=== PATIENT | male | born 1945 | race Caucasian/White ===

== ENCOUNTER 2021-03-27 15:42 | Emergency (ER) | payer OTHER, MEDICARE, SELFPAY ==
[2021-03-27 15:45] VITALS: BP 142/73; PULSE 78; RESP 18; TEMP 36.8; O2SAT 97; BMI 25.3
--- NOTE | 2021-03-27 16:32 | ED.SKABFB ---
HPI - Skin/Abscess/Foreign Bdy General Chief complaint: Skin/Abscess/Foreign Body Stated complaint: tick bite Time Seen by Provider: 03/27/21 16:18 History of Present Illness HPI narrative: Patient complains of rash on the right upper inner thigh which has been there for several weeks, mildly itchy He is concerned as he had a possible tick bite several weeks ago and wants to be sure he does not have Lyme disease He denies any bull's-eye rash, no other rashes, no fever no chills no recent illness Related Data Previous Rx's Medication Instructions Recorded meclizine 25 mg tablet 25 mg PO DAILY 90 Days #90 tab 02/08/21 simvastatin 20 mg tablet 20 mg PO DAILY 90 Days #90 tab 02/08/21 clotrimazole 1 appl TOPICAL BID PRN #30 g 03/27/21 Allergies Allergy/AdvReac Type Severity Reaction Status Date / Time No Known Allergies Allergy Verified 02/08/21 08:36 Review of Systems Review of Systems: Positive for skin rash in groin Negatives are no fever no chills no dizziness no weakness no cough no sore throat no runny nose no body aches Yes all other systems are reviewed and are negative [facility] Past Medical History Source: nursing notes reviewed Medical History (Updated 03/27/21 @ 16:35 by SHWETA Young) Vertigo Social History Social History Advance Directives: No Advance Directives Information Provided: No Physical Exam Vital Signs: Vital Signs: Last Vital Signs Temp 98.2 F 03/27/21 15:45 Pulse 78 03/27/21 15:45 Resp 18 03/27/21 15:45 BP 142/73 H 03/27/21 15:45 Pulse Ox 97 03/27/21 15:45 Body Mass Index 25.3 General appearance no acute distress The neck is supple No respiratory distress Extremities full range of motion x4 Skin exam there is of red raised nontender rash with well-demarcated border on the right inner upper thigh, no surrounding erythema, no warmth no discharge no swelling no tenderness Course Course Course Narrative: Inner thigh rash is consistent with a tinea cruris fungal rash, no signs cellulitis or abscess Patient had concern of a possible tick bite some weeks ago, this rash which has been there for many weeks does not have the appearance of a bull's-eye Lyme rash and patient has had no other symptoms of any illness so I did not start any Lyme disease medication and I did order a Lyme test and well-appearing patient was discharged Discharge Plan Discharge Clinical Impression: Tinea cruris Patient Disposition: Home, Self-Care Additional Instructions: We sent a Lyme disease test and results should be back within a few days and we will call you if they are positive The rash does does look like a fungal rash so we will treat with clotrimazole cream Follow with primary doctor for further evaluation Return any time any concerns Prescriptions: New clotrimazole 1 % cream 1 appl topical BID PRN (Reason: Rash) Qty: 30 RF: 0 No Action simvastatin 20 mg tablet 20 mg PO DAILY 90 Days Qty: 90 RF: 2 meclizine 25 mg tablet 25 mg PO DAILY 90 Days Qty: 90 RF: 2 Discharge Date/Time: 03/27/21 16:40
[2021-03-29 18:02] LABS: Lyme Abs Screen <0.90 index
== END 2021-03-27 16:40 | disposition home or self-care (01) ==
PROVIDERS: Physician Assistant Medical; Emergency Provider Emergency Medicine; PCP Physician Assistant
DX: B35.6 Tinea cruris (principal); R21 Rash and other nonspecific skin eruption; Z79.899 Other long term (current) drug therapy
CPT/HCPCS: 36415; 86617; 86618; 99283

== ENCOUNTER 2021-05-05 08:37 | Outpatient (REF) | payer MEDICARE, SELFPAY ==
[2021-05-05 09:36] LABS: Hematocrit 42.9 % (42-52); Hemoglobin 14.5 g/dl (14.0-18.0); Mean Corpuscular HGB Conc 33.8 g/dl (31.0-36.0); Mean Corpuscular Hemoglobin 31.3 pg (27.0-33.0); Mean Corpuscular Volume 92.5 fL (80-98); Mean Platelet Volume 9.5 fL (9.4-12.4); Platelet Count 241 X10*3/uL (160-400); Red Blood Count 4.64 X10*6/uL (4.60-5.80); Red Cell Distribution Width 12.9 % (11.0-16.0); White Blood Count 5.2 X10*3/uL (4.8-10.8)
[2021-05-05 09:39] LABS: Estimated Average Glucose 91 mg/dL; Hemoglobin A1C 107.7778 umol/L; Hemoglobin A1c % 4.8 %
[2021-05-05 10:21] LABS: Alanine Aminotransferase 7 U/L (0-40); Albumin Level 3.9 g/dL (3.5-5.0); Alkaline Phosphatase 59 U/L (39-117); Anion Gap 11 (12-20); Aspartate Amino Transferase 15 U/L (5-37); Bilirubin Total 0.7 mg/dL (0.0-1.0); Blood Urea Nitrogen 17 mg/dL (9-16); Carbon Dioxide 25 mmol/L (22-29); Chloride 107 mmol/L (96-108); Cholesterol 240 mg/dL; Estimated Glomerular Filt Rate > 60; Glucose Fasting 82 mg/dL (60-99); HDL Cholesterol 67 mg/dL; LDL Cholesterol Calculated 152 mg/dl; Potassium 4.3 mmol/L (3.3-5.1); Sodium 139 mmol/L (135-145); Total Protein 6.4 g/dL (6.5-8.0); Triglycerides 108 mg/dL
[2021-05-05 10:42] LABS: TSH reflex Free T4 5.21 uIU/mL (0.32-4.0)
[2021-05-05 12:00] LABS: Free T4 (Free Thyroxine) 0.89 ng/dL (0.71-1.85)
== END 2021-05-05 08:38 | disposition home or self-care (01) ==
LOC: HO.LAB 08:37
PROVIDERS: PCP Physician Assistant; Visit Provider Physician Assistant
DX: I10 Essential (primary) hypertension (principal); E78.2 Mixed hyperlipidemia
CPT/HCPCS: 36415; 80053; 80061; 83036; 84439; 84443; 85027

== ENCOUNTER 2021-10-13 09:07 | Outpatient (REF) | payer MEDICARE, SELFPAY ==
[2021-10-13 09:59] LABS: Hematocrit 42.2 % (42.0-52.0); Mean Corpuscular HGB Conc 33.2 g/dl (31.0-36.0); Mean Corpuscular Hemoglobin 30.8 pg (27.0-33.0); Mean Corpuscular Volume 92.7 fL (80.0-98.0); Mean Platelet Volume 9.7 fL (9.4-12.4); Platelet Count 270 X10*3/uL (160-400); Red Blood Count 4.55 X10*6/uL (4.60-5.80); Red Cell Distribution Width 12.4 % (11.0-16.0); White Blood Count 5.2 X10*3/uL (4.8-10.8)
[2021-10-13 10:34] LABS: Alanine Aminotransferase 16 U/L (0-40); Albumin Level 3.8 g/dL (3.5-5.0); Alkaline Phosphatase 62 U/L (39-117); Anion Gap 12 (12-20); Aspartate Amino Transferase 17 U/L (5-37); Bilirubin Total 0.7 mg/dL (0.0-1.0); Blood Urea Nitrogen 15 mg/dL (9-16); Calcium 9.5 mg/dL (8.4-10.2); Carbon Dioxide 27 mmol/L (22-29); Chloride 106 mmol/L (96-108); Cholesterol 179 mg/dL; Estimated Glomerular Filt Rate > 60; Glucose Fasting 94 mg/dL (60-99); HDL Cholesterol 66 mg/dL; LDL Cholesterol Calculated 98 mg/dl; Potassium 4.4 mmol/L (3.3-5.1); Sodium 141 mmol/L (135-145); Total Protein 6.4 g/dL (6.5-8.0); Triglycerides 77 mg/dL
[2021-10-13 10:55] LABS: TSH reflex Free T4 5.11 uIU/mL (0.32-4.0)
[2021-10-13 12:07] LABS: Free T4 (Free Thyroxine) 0.92 ng/dL (0.71-1.85)
== END 2021-10-13 09:08 | disposition home or self-care (01) ==
LOC: HO.10HDL 09:07
PROVIDERS: Visit Provider Physician Assistant
DX: E78.2 Mixed hyperlipidemia (principal)
CPT/HCPCS: 36415; 80053; 80061; 84439; 84443; 85027

== ENCOUNTER 2022-02-08 08:52 | Outpatient (REF) | payer MEDICARE, SELFPAY ==
[2022-02-08 10:06] LABS: Hematocrit 43.6 % (42.0-52.0); Hemoglobin 14.2 g/dl (14.0-18.0); Mean Corpuscular HGB Conc 32.6 g/dl (31.0-36.0); Mean Corpuscular Hemoglobin 30.6 pg (27.0-33.0); Mean Platelet Volume 9.7 fL (9.4-12.4); Platelet Count 258 X10*3/uL (160-400); Red Blood Count 4.64 X10*6/uL (4.60-5.80); Red Cell Distribution Width 13.2 % (11.0-16.0); White Blood Count 5.8 X10*3/uL (4.8-10.8)
[2022-02-08 10:21] LABS: Prostate Specific Antigen Scr 7.97 ng/mL (<0.05-4.0); TSH reflex Free T4 5.43 uIU/mL (0.32-4.0)
[2022-02-08 10:49] LABS: Alanine Aminotransferase 18 U/L (0-40); Albumin Level 3.7 g/dL (3.5-5.0); Alkaline Phosphatase 55 U/L (39-117); Anion Gap 13 (12-20); Aspartate Amino Transferase 21 U/L (5-37); Bilirubin Total 0.8 mg/dL (0.0-1.0); Blood Urea Nitrogen 15 mg/dL (9-16); Carbon Dioxide 26 mmol/L (22-29); Chloride 107 mmol/L (96-108); Cholesterol 231 mg/dL; Estimated Glomerular Filt Rate > 60; Glucose Fasting 93 mg/dL (60-99); HDL Cholesterol 58 mg/dL; LDL Cholesterol Calculated 137 mg/dl; Potassium 4.1 mmol/L (3.3-5.1); Sodium 142 mmol/L (135-145); Total Protein 6.4 g/dL (6.5-8.0); Triglycerides 184 mg/dL
[2022-02-08 11:10] LABS: Free T4 (Free Thyroxine) 1.03 ng/dL (0.71-1.85)
== END 2022-02-08 08:53 | disposition home or self-care (01) ==
LOC: HO.LAB 08:52
PROVIDERS: PCP Physician Assistant; Visit Provider Physician Assistant
DX: Z12.5 Encounter for screening for malignant neoplasm of prostate (principal); R79.89 Other specified abnormal findings of blood chemistry; R78.2 Finding of cocaine in blood; N40.0 Benign prostatic hyperplasia without lower urinary tract symptoms
CPT/HCPCS: 36415; 80053; 80061; 84153; 84439; 84443; 85027

== ENCOUNTER 2022-02-24 13:27 | Outpatient (REF) | payer SELFPAY | END 2022-02-24 13:28 | disposition home or self-care (01) | LOC: HO.HAP 13:27 | PROVIDERS: Visit Provider Physician Assistant | DX: Z46.1 Encounter for fitting and adjustment of hearing aid (principal); H90.3 Sensorineural hearing loss, bilateral | CPT/HCPCS: 99499 ==

== ENCOUNTER 2022-09-09 09:11 | Outpatient (REF) | payer MEDICARE, SELFPAY ==
[2022-09-09 09:47] LABS: Hematocrit 42.3 % (42.0-52.0); Hemoglobin 14.2 g/dl (14.0-18.0); Mean Corpuscular HGB Conc 33.6 g/dl (31.0-36.0); Mean Corpuscular Volume 92.4 fL (80.0-98.0); Mean Platelet Volume 9.2 fL (9.4-12.4); Platelet Count 223 X10*3/uL (160-400); Red Blood Count 4.58 X10*6/uL (4.60-5.80); White Blood Count 5.2 X10*3/uL (4.8-10.8)
[2022-09-09 10:23] LABS: Alanine Aminotransferase 15 U/L (0-40); Albumin Level 3.9 g/dL (3.5-5.0); Alkaline Phosphatase 61 U/L (39-117); Anion Gap 15 (12-20); Aspartate Amino Transferase 19 U/L (5-37); Bilirubin Total 0.9 mg/dL (0.0-1.0); Blood Urea Nitrogen 16 mg/dL (9-16); Carbon Dioxide 25 mmol/L (22-29); Chloride 105 mmol/L (96-108); Cholesterol 241 mg/dL; Estimated Glomerular Filt Rate > 60; Glucose Fasting 91 mg/dL (60-99); HDL Cholesterol 73 mg/dL; LDL Cholesterol Calculated 152 mg/dl; Potassium 4.5 mmol/L (3.3-5.1); Sodium 140 mmol/L (135-145); Total Protein 6.6 g/dL (6.5-8.0); Triglycerides 84 mg/dL
[2022-09-09 10:34] LABS: TSH reflex Free T4 4.24 uIU/mL (0.32-4.0)
== END 2022-09-09 09:12 | disposition home or self-care (01) ==
LOC: HO.LAB 09:11
PROVIDERS: PCP Physician Assistant; Visit Provider Physician Assistant
DX: R79.89 Other specified abnormal findings of blood chemistry (principal); E78.2 Mixed hyperlipidemia
CPT/HCPCS: 36415; 80053; 80061; 84439; 84443; 85027

== ENCOUNTER → 2022-09-21 08:20 | Outpatient (BNVA) | payer MEDICARE, SELFPAY | PROVIDERS: PCP Physician Assistant; Visit Provider Orthopaedic Surgery | DX: G56.01 Carpal tunnel syndrome, right upper limb (principal); M72.0 Palmar fascial fibromatosis [Dupuytren] | CPT/HCPCS: 99202 ==

== ENCOUNTER 2022-10-03 08:03 | Outpatient (REF) | payer MEDICARE, SELFPAY ==
--- NOTE | ~2022-10-03 | MR_ITS ---
EXAMINATION: MR BRAIN WITHOUT CONTRAST CLINICAL INFORMATION: Other subjective visual disturbances. COMPARISON: Brain MRI 06/22/2017. TECHNIQUE: Multiplanar, multisequence imaging of the brain was performed without intravenous contrast. FINDINGS: There is no acute infarction, mass, hemorrhage, or extra-axial collection. The ventricles, sulci, and basilar cisterns are normal in size and configuration. There is a punctate focus of microhemorrhage within the left anterior cingulate gyrus. Mild to moderate patchy foci of T2/FLAIR hyperintensity are seen throughout the cerebral white matter, most typical of chronic microangiopathy and similar compared with prior. The flow voids of the major intracranial arteries appear intact. The bones and extracranial soft tissues are unremarkable. There is a right lens replacement. MR/MR head/brain wo con IMPRESSION: No acute infarct, mass lesion, intracranial hemorrhage, or evidence of hydrocephalus. 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
== END 2022-10-03 08:04 | disposition home or self-care (01) ==
LOC: HO.MRI 08:03
PROVIDERS: Visit Provider Physician Assistant
DX: H53.19 Other subjective visual disturbances (principal); R26.89 Other abnormalities of gait and mobility; R42 Dizziness and giddiness
CPT/HCPCS: 70551

== ENCOUNTER 2023-08-09 14:20 | Outpatient (AMB) | payer MEDICARE, SELFPAY ==
--- NOTE | 2023-08-09 14:33 | A.OFFPC_ITS ---
Vital Signs 08/09/23 14:35 Height 5 ft 7 in Weight 154 lb 8 oz BMI 24.2 BP 130/70 Blood Pressure Location Lt brachial Position Sitting Pulse 53 Pulse Source Pulse Oximeter Pulse Oximetry (%) 98 Oxygen Delivery Method Room Air Intake Visit Reasons: Vertigo/PT referral Intake Note: Patient is here today for vertigo and requesting for PT referral Counselor Aide Required: No Storage Management Consultant: Not Required per policy Accompanied by: Self / Same As Patient Allergies No Known Allergies Allergy (Verified 08/09/23 15:07) Medication List - Last Reconciled 08/09/23 by Zaid Connell PA-C levothyroxine 50 mcg PO DAILY 90 days meclizine 25 mg PO DAILY 90 days sildenafil 100 mg PO DAILY PRN simvastatin 20 mg PO DAILY Tobacco use date assessed: 08/09/23 Fall risk assessment: No Falls in past year Last assessed Fall Risk: 08/09/23 Dental Screening Dental Screen Date: 08/09/23 Did you have a dental visit in the last 12 months?: Yes Did you have a dental problem in the last 6 months where you did not have access to dental care?: No Was dental information given to patient?: Patient has dentist HPI Vertigo/PT referral HPI Details Patient is a 78-year-old here today for follow-up visit..? Patient has a past medical history significant for hyperlipidemia, BPH, chronic vertigo, hypothyroidism Chronic vertigo:? Patient continues with the use of meclizine with good effect of his vertigo though continues to have intermittent episodes of breakthrough vertigo.? He has done vestibular therapy in the past with good effect on his dizziness.. Unfortunately continues to have dizziness and feeling off balance. He does report sometimes having visual disturbance while playing golf. He would like further investigation on his chronic dizziness. * Of note he has gotten MRI of his brain in 2017 without any intracranial pathology.? Did get a CT of his brain in 2016 that showed possibility of lucuna infarct . Otherwise he reports he feels well and is able to play golf several times a week.? She still goes to the gym several times a week as well. ? Hypothyroidism:? Has been started on low-dose levothyroxine. Unfortunately has not been able to recheck TSH in several months. .. Hyperlipidemia:? Continues on statin therapy without side effect.? In the setting of hypothyroidism having elevated TSH--> recent total cholesterol 240 and LDL at 152.? Will continue to follow fasting lipid panel. [facility] Medical History High cholesterol Vertigo Surgical History No history of previous surgery Social History [facility] Alcohol intake: current Alcohol intake frequency: holidays/special occasions only Patient Tobacco Use Status: Never used Tobacco e-Cigarette/Vaping Use: Never Used Second Hand Smoke Exposure: No service: Yes ([employer]) Current occupational status: retired Current occupation: rt hand Cognitive needs: No Hearing needs: Yes (hearing aide) Vision needs: Yes (glasses) Questionnaire PHQ-9 Over the last 2 weeks, how often have you been bothered by any of the following problems? 1. Little interest or pleasure in doing things: not at all 2. Feeling down, depressed, or hopeless: not at all 3. Trouble falling or staying asleep, or sleeping too much: not at all 4. Feeling tired or having little energy: not at all 5. Poor appetite or overeating: not at all 6. Feeling bad about yourself - or that you are a failure or have let yourself or your family down: not at all 7. Trouble concentrating on things, such as reading the newspaper or watching television: not at all 8. Moving or speaking so slowly that other people could have noticed. Or the opposite - being so fidgety or restless that you have been moving around a lot more than usual: not at all 9. Thoughts that you would be better off or of hurting yourself in some way: not at all Total score: 0 Depression Screening Interpretation: Negative Source: Developed by Drs. Juan Jarquin, Marlene Richard, Hang Ugaled and colleagues, with an educational cheryl from [employer]. Thrive Questionnaire Date Thrive assessed: 08/09/23 I am a: Patient What is your living situation today?: I have a steady place to live Within the past 12 months, did the food you bought not last and you didn't have the money to get more?: Never true Within the past 12 months, did you worry whether your food would run out before you got money to buy more?: Never true Do you have trouble paying for medicines?: No Do you have trouble getting transportation to medical appointments?: No Do you have trouble paying your heating and electricity bill?: No Do you have trouble taking care of your child, family member or friend?: No Do you have trouble with day-to-day activities such as bathing, preparing meals, shopping, managing finances, etc.?: No Are you currently unemployed and looking for a job?: No Are you interested in more education?: No Currently or been in a relationship where the following occur: no concerns reported AUDIT C Alcohol Use Questionnaire (AUDIT-C) 1. How often do you have a drink containing alcohol?: Monthly or less 2. How many drinks containing alcohol do you have on a typical day when you are drinking?: 1 or 2 Total Score: 1 NETTA-7 AMB Questionnaire NETTA-7 Date NETTA - 7 assessed: 08/09/23 Feeling nervous, anxious, or on edge: 0 = Not at all Not being able to stop or control worryin = Not at all Worrying too much about different things: 0 = Not at all Trouble relaxin = Not at all Being so restless that it is hard to sit still: 0 = Not at all Becoming easily annoyed or irritable: 0 = Not at all Feeling afraid as if something awful might happen: 0 = Not at all Total NETTA-7 score (0-4 normal; 5-9 mild; 10-14 moderate; 15-21 severe): 0 Source: Developed by Drs. Juan Jarquin, Marlene Richard, Hang Ugalde and colleagues, with an educational cheryl from [employer]. Review of Systems Const Denies headache(s) Eyes Denies loss of vision ENT Denies vertigo, Denies dizziness, Denies headache(s) and Denies sore throat Card Denies chest pain, Denies leg edema and Denies lightheadedness Resp Denies cough, Denies hemoptysis and Denies wheezing GI Denies abdominal pain, Denies melena, Denies constipation, Denies diarrhea and Denies vomiting Denies dysuria, Denies urinary frequency and Denies urinary urgency Musc Denies arthralgias, Denies joint swelling, Denies numbness and Denies tingling Neuro Denies Abnormal speech present, Denies behavioral changes, Denies vertigo, Denies dizziness, Denies headache(s), Denies loss of vision, Denies memory loss, Denies numbness and Denies tingling Psych Denies anxiety, Denies behavioral changes, Denies depression, Denies memory loss and Denies panic attacks Shantanu/Lymph Denies easy bleeding and Denies easy bruising Aller/Immun Denies wheezing Physical exam (Primary Care) Vital Signs: Last Vital Signs Pulse 53 08/09/23 14:35 BP 130/70 08/09/23 14:35 Pulse Ox 98 08/09/23 14:35 Oxygen Delivery Method Room Air 08/09/23 14:35 BMI result Body Mass Index 24.2 Tobacco/Smoking Status: Tobacco use Status Tobacco use date assessed 08/09/23 08/09/23 14:40 Patient Tobacco Use Status Never used Tobacco 08/09/23 14:40 e-Cigarette/Vaping Use Never Used 08/09/23 14:40 PHQ-9: PHQ-9 Score PHQ-9: Total score 0 08/09/23 15:11 Depression Screening Interpretation: Negative Thrive Assessment: Date of Thrive Assessment Date Thrive assessed 08/09/23 08/09/23 14:40 Currently or been in a relationship where the following occur: no concerns reported Const General: healthy appearing, no acute distress, alert and awake Nutritional Appearance: well nourished Orientation/consciousness: oriented to person, oriented to place and oriented to time HENMT Ears: TM's normal bilaterally General nose exam: Normal nasal mucous membranes and turbinates present Eyes Conjunctivae: conjunctivae normal Sclerae: sclerae normal Pupils: Equal, round and reactive pupils present Neck Neck: Yes no lymphadenopathy and Yes no JVD Thyroid: Thyroid normal Carotids: no bruits Resp Effort & Inspection: normal respiratory effort and not tachypneic Auscultation: no crackles, no rales, no rhonchi and no wheezes Cardio Rate: regular rate Rhythm: regular rhythm Heart sounds: no murmurs and normal S1 and S2 GI Palpation (GI): Soft to palpation, nontender, no hepatomegaly and no splenomegaly Auscultation: normal bowel sounds Skin General skin exam: no rashes or lesions noted and dry skin Neuro General: oriented to person, oriented to place and oriented to time Cranial nerves: Yes Equal, round and reactive pupils present Speech: No Abnormal speech present Gait exam (Neuro): Normal gait present Motor exam (neuro): no tremor noted Extrem Right upper extremity: full ROM Left upper extremity: full ROM Right lower extremity: full ROM; no edema Left lower extremity: full ROM; no edema Psych Mental Status: mental status grossly normal Speech and movement: Normal speech and movement present Affect: normal affect Attitude: cooperative Thought process: Normal thought process present Assessment and Plan Assessment & Plan (1) BPPV (benign paroxysmal positional vertigo): Code(s): H81.10 - Benign paroxysmal vertigo, unspecified ear Qualifiers: Laterality: bilateral Qualified Code(s): H81.13 - Benign paroxysmal vertigo, bilateral Plan: Patient continues to have intermittent dizziness, does use meclizine on a daily basis. He is concerned about now having visual disturbance and being off balance at times. 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 Has gotten repeat MRI of brain in September of 2020 to showing-->No acute infarct, mass lesion, intracranial hemorrhage, or evidence of hydrocephalus. 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 Will call when he would like order for physical therapy/vestibular therapy for his benign positional paroxysmal vertigo which has helped him tremendously in the past. (2) HLD (hyperlipidemia): Code(s): E78.5 - Hyperlipidemia, unspecified Qualifiers: Hyperlipidemia type: mixed hyperlipidemia Qualified Code(s): E78.2 - Mixed hyperlipidemia Plan: Patient continues on statin therapy without side effect. Patient's most recent total cholesterol and LDL were elevated though in the setting of elevated TSH. Will recheck TSH and fasting cholesterol panel to assure normal before making adjustments in statin potency. (3) BPH (benign prostatic hyperplasia): Code(s): N40.0 - Benign prostatic hyperplasia without lower urinary tract symptoms Qualifiers: Lower urinary tract symptom presence: symptoms absent Qualified Code(s): N40.0 - Benign prostatic hyperplasia without lower urinary tract symptoms Plan: Patient continues to follow urologist. Has a history of elevated PSAs. Denies any urinary symptoms such as urinary retention or weak urinary stream. Orders: Orders TSH reflex Free T4 08/09/23 E03.9 - Hypothyroidism, unspecified Lipid Panel 08/09/23 E78.2 - Mixed hyperlipidemia Comprehensive [place]. Panel Fast 08/09/23 E78.2 - Mixed hyperlipidemia Prostate Specific Antigen Scr 08/09/23 E78.2 - Mixed hyperlipidemia, Z12.5 - Encounter for screening for malignant neoplasm of prostate Coding Level of Care Code Est Pt Level 4 (98488) Diagnoses Benign paroxysmal positional vertigo due to bilateral vestibular disorder H81.13 Laterality: bilateral Mixed hyperlipidemia E78.2 Hyperlipidemia type: mixed hyperlipidemia Benign prostatic hyperplasia without lower urinary tract symptoms N40.0 Lower urinary tract symptom presence: symptoms absent
[2023-08-09 14:35] VITALS: BP 130/70; PULSE 53; O2SAT 98; BMI 24.2
== END 2023-08-09 15:26 | disposition home or self-care (01) ==
PROVIDERS: PCP Physician Assistant; Visit Provider Physician Assistant
DX: H81.13 Benign paroxysmal vertigo, bilateral (principal); E78.2 Mixed hyperlipidemia; N40.0 Benign prostatic hyperplasia without lower urinary tract symptoms
CPT/HCPCS: 99214

== ENCOUNTER 2023-08-21 09:45 | Outpatient (REF) | payer MEDICARE, SELFPAY ==
[2023-08-21 11:29] LABS: Alanine Aminotransferase 15 U/L (0-40); Alkaline Phosphatase 66 U/L (39-117); Anion Gap 13 (12-20); Aspartate Amino Transferase 19 U/L (5-37); Bilirubin Total 0.8 mg/dL (0.0-1.0); Blood Urea Nitrogen 14 mg/dL (9-16); Calcium 10.4 mg/dL (8.4-10.2); Carbon Dioxide 26 mmol/L (22-29); Chloride 107 mmol/L (96-108); Cholesterol 221 mg/dL (<200); Estimated Glomerular Filt Rate > 60; Glucose Fasting 95 mg/dL (60-99); HDL Cholesterol 82 mg/dL (>40); LDL Cholesterol Calculated 124 mg/dL (<100); Potassium 4.5 mmol/L (3.3-5.1); Sodium 141 mmol/L (135-145); Total Protein 7.1 g/dL (6.5-8.0); Triglycerides 76 mg/dL (<150)
[2023-08-21 11:39] LABS: Prostate Specific Antigen Scr 9.74 ng/mL (<0.05-4.0)
[2023-08-21 11:49] LABS: TSH reflex Free T4 3.35 uIU/mL (0.32-4.0)
== END 2023-08-21 09:46 | disposition home or self-care (01) ==
LOC: HO.10HDL 09:45
PROVIDERS: Visit Provider Physician Assistant
DX: Z12.5 Encounter for screening for malignant neoplasm of prostate (principal); E03.9 Hypothyroidism, unspecified; E78.2 Mixed hyperlipidemia
CPT/HCPCS: 36415; 80053; 80061; 84153; 84443

== ENCOUNTER 2023-09-18 09:30 | Outpatient (RCR) | payer MEDICARE, SELFPAY ==
[2023-09-14 14:55] VITALS: BP 149/67; PULSE 73
--- NOTE | 2023-09-14 16:02 | MHC.PT.EP ---
[facility] [place] Office [place] Office [place] Office [address] Sylwia Richards [address] [phone] F: [phone] F: [phone] F: [phone] F: [phone] Physical Therapy Plan of Care Date of Evaluation: 09/14/23 Date of Surgery: NA Diagnosis: BPPV Assessment: Pop is a 78 year old male who is referred to PT for BPPV . He reports of having symptoms of off balance for about a month. He had PT for vestibular rehab in [facility] a month back and was d/c a week or 2 back. His symptoms however returned a few days back. He describes them as feel unsteady and is present with walking and golfing. He denies any nausea of vomiting. On PT examination he presented with intact saccades, visual tracking, negative DVA, negative VBI and was positive for L PC BPPV. Balance was not checked today. He lives with his partner and is independent with all ADLs. He would benefit from skilled PT to address the aforementioned impairments and improve tolerance to functional activities. Frequency and Duration: The patient will be seen 2/week for 4 weeks. Short Term Goals: Services Tech Goals: Patient to be educated on symptoms and indications to return to therapy when needed min 4 weeks. Pt will be negative for nystagmus or reports of vertigo in all diagnostic positions bilaterally to resolution of BPPV in 4 weeks. Patient to be able to functionally move in all planes and directions without provocation of dizziness to show return to PLOF in 4 weeks. Treatment Plan: Modalities to reduce pain, spasms and effusion. Manual therapy to restore motion and function. Therapeutic exercise to improve strength and flexibility. Neuromuscular re-education for posture and balance. Therapeutic activities to return to functional activities of daily living. Electronically signed by: Yary Berger PT DPT Please sign and return to therapist. Thank you for your referral.
--- NOTE | 2023-11-14 09:19 | MHC.PT.DC ---
[facility] [place] Office [place] Office [place] Office [address] Sylwia Richards [address] [phone] F: [phone] F: [phone] F: [phone] F: [phone] Physical Therapy Discharge Report Diagnosis: BPPV Date of Surgery: NA Date of Evaluation: 09/14/23 Date of Discharge: 11/14/23 Treatments to Date: 2 Cancellations to Date: 0 No Shows to Date: 0 Discharge Status: Achieved Goals Discharge Summary: Pop has had no symptoms of vestibular dysfunction in over a month. He is therefore being d/c from PT. Electronically signed by: Yary Berger PT DPT Please sign and return to therapist. Thank you for your referral.
== END 2023-11-14 09:19 | disposition home or self-care (01) ==
LOC: HO.PT 09:30
PROVIDERS: PCP Physician Assistant; Visit Provider Physician Assistant
DX: H81.13 Benign paroxysmal vertigo, bilateral (principal)
CPT/HCPCS: 95992; 97112; 97161

== ENCOUNTER 2024-02-07 08:46 | Outpatient (AMB) | payer MEDICARE, SELFPAY ==
[2024-02-07 09:11] VITALS: BP 146/68; PULSE 95; O2SAT 99; BMI 24.6
--- NOTE | 2024-02-07 09:11 | A.OFFPC_ITS ---
Vital Signs 02/07/24 09:11 02/07/24 09:29 Height 5 ft 7 in Weight 157 lb 2 oz BMI 24.6 BP 146/68 H 140/62 H Blood Pressure Location Lt brachial Position Sitting Pulse 95 Pulse Source Pulse Oximeter Pulse Oximetry (%) 99 Oxygen Delivery Method Room Air Intake Visit Reasons: f/u HLD/ vertigo Child And Adolescent Therapist Required: No Accompanied by: Self / Same As Patient Allergies No Known Allergies Allergy (Verified 02/07/24 09:18) Medication List - Last Reconciled 02/07/24 by Zaid Connell PA-C levothyroxine 50 mcg PO DAILY 90 days meclizine 25 mg PO DAILY 90 days sildenafil 100 mg PO DAILY PRN simvastatin 20 mg PO DAILY Tobacco use date assessed: 02/07/24 Fall risk assessment: No Falls in past year Last assessed Fall Risk: 02/07/24 Dental Screening Dental Screen Date: 02/07/24 Did you have a dental visit in the last 12 months?: Yes Did you have a dental problem in the last 6 months where you did not have access to dental care?: No Was dental information given to patient?: Patient has dentist HPI f/u HLD/ vertigo HPI Details Patient is a 78-year-old here today for follow-up visit..? Patient has a past medical history significant for hyperlipidemia, BPH, chronic vertigo, hypothyroidism Chronic vertigo:? Patient continues with the use of meclizine with good effect of his vertigo though continues to have intermittent episodes of breakthrough vertigo.? He has done vestibular therapy in the past with good effect on his dizziness.. Unfortunately continues to have dizziness and feeling off balance. He does report sometimes having visual disturbance while playing golf. He would like further investigation on his chronic dizziness. * Of note he has gotten MRI of his brain in 2021 without any intracranial pathology.? Did get a CT of his brain in 2016 that showed possibility of lucuna infarct . Otherwise he reports he feels well and is able to play golf several times a week.? She still goes to the gym several times a week as well. ? Hypothyroidism:? Has been started on low-dose levothyroxine. Unfortunately has not been able to recheck TSH in several months. .. Hyperlipidemia:? Continues on statin therapy without side effect.? In the setting of hypothyroidism having elevated TSH--> Will continue to follow fasting lipid panel. Laboratory Tests 02/08/22 09/09/22 09/09/22 09:03 09:37 09:37 Cholesterol 241 PSA Screen 7.97 H TSH 4.24 H 08/21/23 08/21/23 08/21/23 08:50 08:50 08:50 Cholesterol 221 H PSA Screen 9.74 H TSH 3.35 PFSH Medical History High cholesterol Vertigo Surgical History No history of previous surgery Social History Housing: Condominium Alcohol intake: current Alcohol intake frequency: holidays/special occasions only Patient Tobacco Use Status: Never used Tobacco e-Cigarette/Vaping Use: Never Used Second Hand Smoke Exposure: No service: Yes ([employer]) Current occupational status: retired Current occupation: rt hand Cognitive needs: No Hearing needs: Yes (hearing aide) Vision needs: Yes (glasses) Questionnaire PHQ-9 Over the last 2 weeks, how often have you been bothered by any of the following problems? 1. Little interest or pleasure in doing things: not at all 2. Feeling down, depressed, or hopeless: not at all 3. Trouble falling or staying asleep, or sleeping too much: not at all 4. Feeling tired or having little energy: not at all 5. Poor appetite or overeating: not at all 6. Feeling bad about yourself - or that you are a failure or have let yourself or your family down: not at all 7. Trouble concentrating on things, such as reading the newspaper or watching television: not at all 8. Moving or speaking so slowly that other people could have noticed. Or the opposite - being so fidgety or restless that you have been moving around a lot more than usual: not at all 9. Thoughts that you would be better off or of hurting yourself in some way: not at all Total score: 0 Depression Screening Interpretation: Negative Depression Screening Done: Yes 08994 - PHQ-9 Billing: Yes Source: Developed by Drs. Juan L. Marlene Jarquin Kurt Kroenke and colleagues, with an educational cheryl from [employer]. Thrive Questionnaire Date Thrive assessed: 02/07/24 I am a: Patient What is your living situation today?: I have a steady place to live Within the past 12 months, did the food you bought not last and you didn't have the money to get more?: Never true Within the past 12 months, did you worry whether your food would run out before you got money to buy more?: Never true Do you have trouble paying for medicines?: No Do you have trouble getting transportation to medical appointments?: No Do you have trouble paying your heating and electricity bill?: No Do you have trouble taking care of your child, family member or friend?: No Do you have trouble with day-to-day activities such as bathing, preparing meals, shopping, managing finances, etc.?: No Are you currently unemployed and looking for a job?: No Are you interested in more education?: No Please select the resources that you would like help with: None Currently or been in a relationship where the following occur: no concerns reported THRIVE Score: 0 AUDIT C Alcohol Use Questionnaire (AUDIT-C) 1. How often do you have a drink containing alcohol?: 2-4 times a month 2. How many drinks containing alcohol do you have on a typical day when you are drinking?: 1 or 2 3. How often do you have six or more drinks on one occasion?: Never Total Score: 2 NETTA-7 AMB Questionnaire NETTA-7 Date NETTA - 7 assessed: 02/07/24 Feeling nervous, anxious, or on edge: 0 = Not at all Not being able to stop or control worryin = Not at all Worrying too much about different things: 0 = Not at all Trouble relaxin = Not at all Being so restless that it is hard to sit still: 0 = Not at all Becoming easily annoyed or irritable: 0 = Not at all Feeling afraid as if something awful might happen: 0 = Not at all Total NETTA-7 score (0-4 normal; 5-9 mild; 10-14 moderate; 15-21 severe): 0 Source: Developed by Marlene Morrow Kurt Kroenke and colleagues, with an educational cheryl from [employer]. NETTA-7 Assessment Billing NETTA-7 Assessment Tool: NETTA-7 Assessment 54442 Review of Systems Const Denies headache(s) Eyes Denies loss of vision ENT Denies vertigo, Denies dizziness, Denies headache(s) and Denies sore throat Card Denies chest pain, Denies leg edema and Denies lightheadedness Resp Denies cough, Denies hemoptysis and Denies wheezing GI Denies abdominal pain, Denies melena, Denies constipation, Denies diarrhea and Denies vomiting Denies dysuria, Denies urinary frequency and Denies urinary urgency Musc Denies arthralgias, Denies joint swelling, Denies numbness and Denies tingling Neuro Denies Abnormal speech present, Denies behavioral changes, Denies vertigo, Denies dizziness, Denies headache(s), Denies loss of vision, Denies memory loss, Denies numbness and Denies tingling Psych Denies anxiety, Denies behavioral changes, Denies depression, Denies memory loss and Denies panic attacks Shantanu/Lymph Denies easy bleeding and Denies easy bruising Aller/Immun Denies wheezing Physical exam (Primary Care) Vital Signs: Last Vital Signs Pulse 95 02/07/24 09:11 BP 140/62 H 02/07/24 09:29 Pulse Ox 99 02/07/24 09:11 Oxygen Delivery Method Room Air 02/07/24 09:11 BMI result Body Mass Index 24.6 Tobacco/Smoking Status: Tobacco use Status Tobacco use date assessed 02/07/24 02/07/24 09:16 Patient Tobacco Use Status Never used Tobacco 02/07/24 09:16 e-Cigarette/Vaping Use Never Used 02/07/24 09:16 PHQ-9: PHQ-9 Score PHQ-9: Total score 0 02/07/24 09:19 Depression Screening Interpretation: Negative Thrive Assessment: Date of Thrive Assessment Date Thrive assessed 02/07/24 02/07/24 09:16 Currently or been in a relationship where the following occur: no concerns reported Const General: healthy appearing, no acute distress, alert and awake Nutritional Appearance: well nourished Orientation/consciousness: oriented to person, oriented to place and oriented to time HENMT Ears: TM's normal bilaterally General nose exam: Normal nasal mucous membranes and turbinates present Eyes Conjunctivae: conjunctivae normal Sclerae: sclerae normal Pupils: Equal, round and reactive pupils present Neck Neck: Yes no lymphadenopathy and Yes no JVD Thyroid: Thyroid normal Carotids: no bruits Resp Effort & Inspection: normal respiratory effort and not tachypneic Auscultation: no crackles, no rales, no rhonchi and no wheezes Cardio Rate: regular rate Rhythm: regular rhythm Heart sounds: no murmurs and normal S1 and S2 GI Palpation (GI): Soft to palpation, nontender, no hepatomegaly and no splenomegaly Auscultation: normal bowel sounds Skin General skin exam: no rashes or lesions noted and dry skin Neuro General: oriented to person, oriented to place and oriented to time Cranial nerves: Yes Equal, round and reactive pupils present Speech: No Abnormal speech present Gait exam (Neuro): Normal gait present Motor exam (neuro): no tremor noted Extrem Right upper extremity: full ROM Left upper extremity: full ROM Right lower extremity: full ROM; no edema Left lower extremity: full ROM; no edema Psych Mental Status: mental status grossly normal Speech and movement: Normal speech and movement present Affect: normal affect Attitude: cooperative Thought process: Normal thought process present Assessment and Plan Assessment & Plan (1) BPPV (benign paroxysmal positional vertigo): Code(s): H81.10 - Benign paroxysmal vertigo, unspecified ear Qualifiers: Laterality: bilateral Qualified Code(s): H81.13 - Benign paroxysmal vertigo, bilateral Plan: Patient continues to have intermittent dizziness, does use meclizine on a daily basis. He is concerned about now having visual disturbance and being off balance at times. Has gotten repeat MRI of brain in September of 2022 showing-->No acute infarct, mass lesion, intracranial hemorrhage, or evidence of hydrocephalus. 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 Will call when he would like order for physical therapy/vestibular therapy for his benign positional paroxysmal vertigo which has helped him tremendously in the past. (2) HLD (hyperlipidemia): Code(s): E78.5 - Hyperlipidemia, unspecified Qualifiers: Hyperlipidemia type: mixed hyperlipidemia Qualified Code(s): E78.2 - Mixed hyperlipidemia Plan: Patient continues on statin therapy without side effect. Patient's most recent total cholesterol and LDL were elevated though in the setting of elevated TSH. Will recheck TSH and fasting cholesterol panel to assure normal before making adjustments in statin potency. (3) BPH (benign prostatic hyperplasia): Code(s): N40.0 - Benign prostatic hyperplasia without lower urinary tract symptoms Qualifiers: Lower urinary tract symptom presence: symptoms absent Qualified Code(s): N40.0 - Benign prostatic hyperplasia without lower urinary tract symptoms Plan: Patient continues to follow urologist. Has a history of elevated PSAs. He does report having some weak urinary stream in urinary urgency at times. He is willing to start tamsulosin. Will recheck his PSA if continues to elevate will let patient know when he will call us urologist (4) Elevated blood pressure reading: Code(s): R03.0 - Elevated blood-pressure reading, without diagnosis of hypertension Plan: Blood pressure slightly elevated today in office. He does not regularly check his blood pressure though usually it is normal. Advised to monitor blood pressure at and if consistently above 140/90 will consider low-dose blood pressure medication. Orders: Orders Comprehensive [place]. Panel Fast 02/07/24 E78.2 - Mixed hyperlipidemia TSH reflex Free T4 02/07/24 E03.9 - Hypothyroidism, unspecified Lipid Panel 02/07/24 E78.2 - Mixed hyperlipidemia Complete Blood Count no Diff 02/07/24 E78.2 - Mixed hyperlipidemia Prostate Specific Antigen Scr 02/07/24 N40.0 - Benign prostatic hyperplasia without lower urinary tract symptoms, Z12.5 - Encounter for screening for malignant neoplasm of prostate Medications: New tamsulosin 0.4 mg PO DAILY 90 caps 1RF N40.0 - Benign prostatic hyperplasia without lower urinary tract symptoms Coding Level of Care Code Est Pt Level 4 (25704) Diagnoses Benign paroxysmal positional vertigo due to bilateral vestibular disorder H81.13 Laterality: bilateral Mixed hyperlipidemia E78.2 Hyperlipidemia type: mixed hyperlipidemia Benign prostatic hyperplasia without lower urinary tract symptoms N40.0 Lower urinary tract symptom presence: symptoms absent Elevated blood pressure reading R03.0 Additional Codes NETTA-7 Assessment Billing - NETTA-7 Assessment Tool: NETTA-7 Assessment 45722 ([id number])
[2024-02-07 09:29] VITALS: BP 140/62
== END 2024-02-07 09:36 | disposition home or self-care (01) ==
PROVIDERS: PCP Physician Assistant; Visit Provider Physician Assistant
DX: H81.13 Benign paroxysmal vertigo, bilateral (principal); E78.2 Mixed hyperlipidemia; N40.0 Benign prostatic hyperplasia without lower urinary tract symptoms; R03.0 Elevated blood-pressure reading, without diagnosis of hypertension
CPT/HCPCS: 99214

== ENCOUNTER 2024-02-16 08:43 | Outpatient (REF) | payer MEDICARE, SELFPAY ==
[2024-02-16 11:43] LABS: Hematocrit 38.8 % (42.0-52.0); Hemoglobin 13.3 g/dl (14.0-18.0); Mean Corpuscular HGB Conc 34.3 g/dl (31.0-36.0); Mean Corpuscular Hemoglobin 32.2 pg (27.0-33.0); Mean Corpuscular Volume 93.9 fL (80.0-98.0); Mean Platelet Volume 9.8 fL (9.4-12.4); Platelet Count 240 X10*3/uL (160-400); Red Blood Count 4.13 X10*6/uL (4.60-5.80); Red Cell Distribution Width 12.8 % (11.0-16.0); White Blood Count 5.2 X10*3/uL (4.8-10.8)
[2024-02-16 12:14] LABS: Prostate Specific Antigen Scr 6.23 ng/mL (<0.05-4.0)
[2024-02-16 12:24] LABS: Alanine Aminotransferase 24 U/L (0-40); Albumin Level 3.5 g/dL (3.5-5.0); Alkaline Phosphatase 67 U/L (39-117); Anion Gap 13 (12-20); Aspartate Amino Transferase 27 U/L (5-37); Bilirubin Total 0.5 mg/dL (0.0-1.0); Blood Urea Nitrogen 14 mg/dL (9-16); Calcium 9.4 mg/dL (8.4-10.2); Carbon Dioxide 27 mmol/L (22-29); Chloride 107 mmol/L (96-108); Cholesterol 188 mg/dL (<200); Estimated Glomerular Filt Rate > 60; Glucose Fasting 77 mg/dL (60-99); HDL Cholesterol 87 mg/dL (>40); LDL Cholesterol Calculated 87 mg/dL (<100); Sodium 143 mmol/L (135-145); TSH reflex Free T4 2.47 uIU/mL (0.32-4.0); Total Protein 6.8 g/dL (6.5-8.0); Triglycerides 74 mg/dL (<150)
== END 2024-02-16 08:44 | disposition home or self-care (01) ==
LOC: HO.10HDL 08:43
PROVIDERS: Visit Provider Physician Assistant
DX: Z12.5 Encounter for screening for malignant neoplasm of prostate (principal); E03.9 Hypothyroidism, unspecified; E78.2 Mixed hyperlipidemia; N40.0 Benign prostatic hyperplasia without lower urinary tract symptoms
CPT/HCPCS: 36415; 80053; 80061; 84153; 84443; 85027

== ENCOUNTER 2024-08-14 10:16 | Outpatient (AMB) | payer MEDICARE, SELFPAY ==
[2024-08-14 10:26] VITALS: BP 128/54; PULSE 76; O2SAT 98; BMI 24.6
--- NOTE | 2024-08-14 10:26 | MHC.PC.OV ---
Vital Signs 08/14/24 10:26 Height 5 ft 7 in Weight 157 lb BMI 24.6 BP 128/54 L Blood Pressure Location Lt brachial Position Sitting Pulse 76 Pulse Source Pulse Oximeter Pulse Oximetry (%) 98 Oxygen Delivery Method Room Air Intake Visit Reasons: ANNUAL Intake Note: Patient is here today for a physical. [employer] Physician Required: No Accompanied by: Self / Same As Patient Allergies No Known Allergies Allergy (Verified 08/14/24 10:59) Medication List - Last Reconciled 08/14/24 by Zaid Connell PA-C levothyroxine 50 mcg PO DAILY 90 days meclizine 25 mg PO DAILY 90 days sildenafil 100 mg PO DAILY PRN simvastatin 20 mg PO DAILY tamsulosin 0.4 mg PO DAILY Tobacco use date assessed: 02/07/24 Fall risk assessment: No Falls in past year Last assessed Fall Risk: 08/14/24 Dental Screening Dental Screen Date: 02/07/24 HPI ANNUAL HPI Details Patient is a 79-year-old here today for routine annual physical.? Patient has a past medical history significant for hyperlipidemia, BPH, chronic vertigo, hypothyroidism. 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 Hypothyroidism:? Patient continues on levothyroxine 50mcg. TSH has been fairly stable .. Hyperlipidemia:? Patient's most recent lipid panel showing excellent control of his total cholesterol and LDL. Patient continues on simvastatin 20 mg without any side effect. Vaccines: Up-to-date with tetanus vaccine, shingles vaccine, considering flu, Need PCV ( declines) Colorectal cancer screening- No further colonoscopies needed PFSH Medical History High cholesterol Vertigo Surgical History No history of previous surgery Social History (Updated 08/14/24 @ 11:04 by Zaid Connell PA-C) Housing: Condominium Alcohol intake: current Alcohol intake frequency: holidays/special occasions only Alcohol type: beer Patient Tobacco Use Status: Never used Tobacco e-Cigarette/Vaping Use: Never Used Second Hand Smoke Exposure: No service: Yes ([employer]) Current occupational status: retired Current occupation: rt hand Cognitive needs: No Hearing needs: Yes (hearing aide) Vision needs: Yes (glasses) Questionnaire PHQ-9 Over the last 2 weeks, how often have you been bothered by any of the following problems? 1. Little interest or pleasure in doing things: not at all 2. Feeling down, depressed, or hopeless: not at all 3. Trouble falling or staying asleep, or sleeping too much: not at all 4. Feeling tired or having little energy: not at all 5. Poor appetite or overeating: not at all 6. Feeling bad about yourself - or that you are a failure or have let yourself or your family down: not at all 7. Trouble concentrating on things, such as reading the newspaper or watching television: not at all 8. Moving or speaking so slowly that other people could have noticed. Or the opposite - being so fidgety or restless that you have been moving around a lot more than usual: not at all 9. Thoughts that you would be better off or of hurting yourself in some way: not at all Total score: 0 Depression Screening Interpretation: Negative Depression Screening Done: Yes 31221 - PHQ-9 Billing: Yes Source: Developed by Drs. Juan Jarquin, Marlene Richard, Hang Ugalde and colleagues, with an educational cheryl from [employer]. Thrive Questionnaire Date Thrive assessed: 08/14/24 I am a: Patient What is your living situation today?: I have a steady place to live Within the past 12 months, did the food you bought not last and you didn't have the money to get more?: I choose not to answer this question Within the past 12 months, did you worry whether your food would run out before you got money to buy more?: Never true Do you have trouble paying for medicines?: No Do you have trouble getting transportation to medical appointments?: No Do you have trouble paying your heating and electricity bill?: No Do you have trouble taking care of your child, family member or friend?: No Do you have trouble with day-to-day activities such as bathing, preparing meals, shopping, managing finances, etc.?: No Are you currently unemployed and looking for a job?: No Are you interested in more education?: No Please select the resources that you would like help with: None Currently or been in a relationship where the following occur: No concerns reported THRIVE Score: 0 AUDIT C Alcohol Use Questionnaire (AUDIT-C) 1. How often do you have a drink containing alcohol?: 2-4 times a month 2. How many drinks containing alcohol do you have on a typical day when you are drinking?: 1 or 2 3. How often do you have six or more drinks on one occasion?: Never Total Score: 2 NETTA-7 AMB Questionnaire NETTA-7 Date NETTA - 7 assessed: 08/14/24 Feeling nervous, anxious, or on edge: 0 = Not at all Not being able to stop or control worryin = Not at all Worrying too much about different things: 0 = Not at all Trouble relaxin = Not at all Being so restless that it is hard to sit still: 0 = Not at all Becoming easily annoyed or irritable: 0 = Not at all Feeling afraid as if something awful might happen: 0 = Not at all Total NETTA-7 score (0-4 normal; 5-9 mild; 10-14 moderate; 15-21 severe): 0 Source: Developed by Drs. Juan Jarquin, Marelne Richard, Hang Ugalde and colleagues, with an educational cheryl from [employer]. NETTA-7 Assessment Billing NETTA-7 Assessment Tool: NETTA-7 Assessment 63498 Review of Systems Const Denies body aches, Denies chills, Denies excessive sweating, Denies fatigue, Denies fever(s) and Denies headache(s) Eyes Denies blurry vision ENT Denies dysphagia, Denies vertigo, Denies dizziness, Denies headache(s), Denies hearing loss and Denies tinnitus Card Denies chest pain, Denies chest pain with activity, Denies syncope, Denies irregular heart rhythm and Denies dyspnea Resp Denies chest congestion, Denies cough, Denies hemoptysis, Denies dyspnea and Denies wheezing GI Denies abdominal pain, Denies melena, Denies hematochezia, Denies coffee ground emesis, Denies dysphagia, Denies diarrhea, Denies nausea and Denies vomiting Denies difficulty urinating, Denies dysuria, Denies urinary frequency, Denies urinary hesitancy and Denies urinary urgency Musc Denies arthralgias, Denies limited range of motion, Denies muscle cramps and Denies muscle weakness Skin/Breast Denies rash and Denies skin ulcer Neuro Denies Abnormal speech present, Denies confusion, Denies vertigo, Denies dizziness, Denies syncope, Denies headache(s), Denies memory loss and Denies seizure-like activity Psych Denies anxiety, Denies confusion, Denies depression, Denies memory loss, Denies panic attacks and Denies paranoia Endo Denies excessive sweating, Denies fatigue, Denies flushing, Denies polydipsia and Denies polyuria Aller/Immun Denies wheezing Physical exam (Primary Care) Vital Signs: Last Vital Signs Pulse 76 08/14/24 10:26 BP 128/54 L 08/14/24 10:26 Pulse Ox 98 08/14/24 10:26 Oxygen Delivery Method Room Air 08/14/24 10:26 BMI result Body Mass Index 24.6 Tobacco/Smoking Status: Tobacco use Status Tobacco use date assessed 02/07/24 08/14/24 10:27 Patient Tobacco Use Status Never used Tobacco 08/14/24 11:04 e-Cigarette/Vaping Use Never Used 08/14/24 11:04 PHQ-9: PHQ-9 Score PHQ-9: Total score 0 08/14/24 11:01 Depression Screening Interpretation: Negative Thrive Assessment: Date of Thrive Assessment Date Thrive assessed 08/14/24 08/14/24 10:27 Currently or been in a relationship where the following occur: No concerns reported Const General: cooperative, comfortable, no acute distress, alert and awake; No confusion Orientation/consciousness: oriented to person, oriented to place, patient oriented x3 and No confusion HENMT Head: Yes normocephalic Ears: external ears normal and TM's normal bilaterally Face and sinus: No sinus tenderness Mouth: Normal oral and palatal mucosa present and tongue normal Teeth and gingiva: dentition normal and gingiva normal Throat: Yes posterior oropharynx normal, Yes tonsils normal and Yes uvula midline Eyes Conjunctivae: conjunctivae normal Sclerae: sclerae normal Pupils: Equal, round and reactive pupils present EOM: EOMs intact bilaterally Direct Ophthalmoscopy: No no photophobia Neck Neck: Yes no lymphadenopathy, No tender and Yes no JVD Thyroid: Thyroid normal Carotids: no bruits Chest Chest palpation & inspection: no tenderness Resp Effort & Inspection: normal respiratory effort, no audible wheezes, not labored and no stridor Auscultation: no crackles, no rales, no rhonchi and no wheezes Cardio Jugular venous distension: no JVD Rate: regular rate, not bradycardic and not tachycardic Rhythm: regular rhythm Bruits: no carotid bruits Peripheral pulses: Peripheral pulses 2+ throughout GI Inspection: Yes normal to inspection, No abdominal wall ecchymosis and No visible herniation Palpation (GI): Soft to palpation, nontender, no guarding, not rigid and No hepatosplenomegaly present Auscultation: normoactive bowel sounds General: Yes no CVA tenderness Back/Spine/Pelvis Back: no CVA tenderness and No back tenderness Cervical Spine: cervical ROM normal Thoracic/Lumbar Spine: thoracic and lumbar spine normal to inspection, straight leg raise negative bilaterally, No thoraco-lumbar ROM limited and No lumbar spinal tenderness Skin Lesions: no lesions Rashes: no rashes Wounds: no wounds Neuro General: oriented to person, oriented to place, patient oriented x3, CN's II-XI intact bilaterally and No confusion Cranial nerves: Yes Equal, round and reactive pupils present and Yes Normal accommodation reflex present Cognition (Neuro): normal cognition Speech: No Abnormal speech present Gait exam (Neuro): Normal gait present Motor exam (neuro): 5/5 motor strength present throughout Extrem Right upper extremity: full ROM; no cyanosis Left upper extremity: full ROM; no cyanosis Right lower extremity: no edema Left lower extremity: no edema Psych Appearance: grossly normal Mental Status: mental status grossly normal Affect: normal affect Attitude: cooperative Thought process: Normal thought process present Assessment and Plan Assessment & Plan (1) HLD (hyperlipidemia): Code(s): E78.5 - Hyperlipidemia, unspecified Qualifiers: Hyperlipidemia type: mixed hyperlipidemia Qualified Code(s): E78.2 - Mixed hyperlipidemia Plan: Patient continues on statin therapy without side effect. Most recent lipid panel showing excellent control of his total cholesterol and LDL. Will continue current dose of statin therapy simvastatin 20 mg with goal LDL to remain below 130 (2) BPH (benign prostatic hyperplasia): Code(s): N40.0 - Benign prostatic hyperplasia without lower urinary tract symptoms Qualifiers: Lower urinary tract symptom presence: symptoms absent Qualified Code(s): N40.0 - Benign prostatic hyperplasia without lower urinary tract symptoms Plan: Patient continues to follow urologist. Has a history of elevated PSAs for many years. He attributes his elevated PSAs from being physically active and riding his bike. He otherwise denies any urinary symptoms at this time. (3) Hypothyroid: Code(s): E03.9 - Hypothyroidism, unspecified Qualifiers: Hypothyroidism type: unspecified Qualified Code(s): E03.9 - Hypothyroidism, unspecified Plan: Patient continues on levothyroxine 50 mcg with good effect. Weight has been fairly stable. Most recent TSH is have been stable. Will continue follow TSH. (4) BPPV (benign paroxysmal positional vertigo): Code(s): H81.10 - Benign paroxysmal vertigo, unspecified ear Qualifiers: Laterality: bilateral Qualified Code(s): H81.13 - Benign paroxysmal vertigo, bilateral Plan: Patient's vertigo has resolved over the last 2 years since taking a [id number] balance supplement. Orders: Orders TSH reflex Free T4 08/14/24 E03.9 - Hypothyroidism, unspecified Prostate Specific Antigen Scr 08/14/24 N40.0 - Benign prostatic hyperplasia without lower urinary tract symptoms, Z12.5 - Encounter for screening for malignant neoplasm of prostate Comprehensive [place]. Panel Fast 08/14/24 E78.2 - Mixed hyperlipidemia Lipid Panel 08/14/24 E78.2 - Mixed hyperlipidemia Patient Instructions: Goal: Total cholesterol to be below 230 and LDL to be below 130 Barriers: Adherence to physical activity and healthy eating habits Coding Level of Care Code Est Pt Prev Care >65y(66515) Diagnoses Mixed hyperlipidemia E78.2 Hyperlipidemia type: mixed hyperlipidemia Benign prostatic hyperplasia without lower urinary tract symptoms N40.0 Lower urinary tract symptom presence: symptoms absent Hypothyroidism, unspecified type E03.9 Hypothyroidism type: unspecified Benign paroxysmal positional vertigo due to bilateral vestibular disorder H81.13 Laterality: bilateral Additional Codes NETTA-7 Assessment Billing - NETTA-7 Assessment Tool: NETTA-7 Assessment 50449 ([id number])
== END 2024-08-14 11:20 | disposition home or self-care (01) ==
PROVIDERS: PCP Physician Assistant; Visit Provider Physician Assistant
DX: Z00.00 Encounter for general adult medical examination without abnormal findings (principal); E78.2 Mixed hyperlipidemia; N40.0 Benign prostatic hyperplasia without lower urinary tract symptoms; E03.9 Hypothyroidism, unspecified; H81.13 Benign paroxysmal vertigo, bilateral

== ENCOUNTER → 2024-08-14 10:16 | Outpatient (BNVA) | payer MEDICARE, SELFPAY | PROVIDERS: PCP Physician Assistant; Visit Provider Physician Assistant | DX: Z00.00 Encounter for general adult medical examination without abnormal findings (principal); E78.2 Mixed hyperlipidemia; N40.0 Benign prostatic hyperplasia without lower urinary tract symptoms; E03.9 Hypothyroidism, unspecified; H81.13 Benign paroxysmal vertigo, bilateral | CPT/HCPCS: 96127 ==

== ENCOUNTER 2024-12-31 09:06 | Outpatient (REF) | payer MEDICARE, SELFPAY ==
[2024-12-31 11:18] LABS: Prostate Specific Antigen Scr 10.68 ng/mL (<0.05-4.0)
[2024-12-31 11:19] LABS: Alanine Aminotransferase 19 U/L (0-40); Albumin Level 3.9 g/dL (3.5-5.0); Alkaline Phosphatase 67 U/L (39-117); Anion Gap 16 (12-20); Aspartate Amino Transferase 22 U/L (5-37); Bilirubin Total 0.8 mg/dL (0.0-1.0); Blood Urea Nitrogen 12 mg/dL (9-16); Calcium 9.2 mg/dL (8.4-10.2); Carbon Dioxide 28 mmol/L (22-29); Chloride 106 mmol/L (96-108); Cholesterol 246 mg/dL (<200); Estimated Glomerular Filt Rate > 60; Glucose Fasting 85 mg/dL (60-99); HDL Cholesterol 71 mg/dL (>40); LDL Cholesterol Calculated 128 mg/dL (<100); Potassium 4.3 mmol/L (3.3-5.1); Sodium 146 mmol/L (135-145); TSH reflex Free T4 4.06 uIU/mL (0.32-4.0); Total Protein 7.6 g/dL (6.5-8.0); Triglycerides 235 mg/dL (<150)
[2024-12-31 13:52] LABS: Free T4 (Free Thyroxine) 1.06 ng/dL (0.71-1.85)
[2025-01-01 12:43] LABS: Percent Free Prostate Spec Ag NOT CALCULATED % (calc) (>25); Prostate Specific Ag Total 10.8 ng/mL (< OR = 4.0)
== END 2024-12-31 09:07 | disposition home or self-care (01) ==
LOC: HO.10HDL 09:06
PROVIDERS: Physician Assistant; Visit Provider Physician Assistant
DX: R97.20 Elevated prostate specific antigen [PSA] (principal); E03.9 Hypothyroidism, unspecified; Z12.5 Encounter for screening for malignant neoplasm of prostate; N40.0 Benign prostatic hyperplasia without lower urinary tract symptoms; E78.2 Mixed hyperlipidemia
CPT/HCPCS: 36415; 80053; 80061; 84153; 84154; 84439; 84443

== ENCOUNTER 2025-02-11 10:02 | Outpatient (AMB) | payer MEDICARE, SELFPAY ==
--- NOTE | 2025-02-11 10:07 | A.OFFPC_ITS ---
Vital Signs 02/11/25 10:18 Height 5 ft 7 in Weight 158 lb 4 oz BMI 24.8 BP 142/62 H Blood Pressure Location Lt brachial Position Sitting Pulse 64 Pulse Source Pulse Oximeter Temp 97.5 F Temp Source Temporal Artery Scan Pulse Oximetry (%) 98 Oxygen Delivery Method Room Air Intake Visit Reasons: f/u hypothyroid Medical Billing Specialist Required: No Accompanied by: Self / Same As Patient Allergies No Known Allergies Allergy (Verified 02/11/25 10:30) Medication List - Last Reconciled 02/11/25 by Zaid Connell PA-C levothyroxine 50 mcg PO DAILY 90 days meclizine 25 mg PO DAILY 90 days neomycin-polymyxin B-dexameth 3.5 mg/g-10,000 unit/g-0.1 % ophthalmic (eye) sildenafil 100 mg PO DAILY PRN simvastatin 40 mg PO BEDTIME 90 days tamsulosin 0.4 mg PO DAILY Tobacco use date assessed: 02/11/25 Fall risk assessment: No Falls in past year Last assessed Fall Risk: 02/11/25 Dental Screening Dental Screen Date: 02/11/25 Did you have a dental visit in the last 12 months?: Yes Did you have a dental problem in the last 6 months where you did not have access to dental care?: No Was dental information given to patient?: Patient has dentist HPI f/u hypothyroid HPI Details Patient is a 79-year-old here today for routine annual physical.? Patient has a past medical history significant for hyperlipidemia, BPH, chronic vertigo, hypothyroidism. 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 Hypothyroidism:? Patient continues on levothyroxine 50mcg. TSH has been fairly stable .. Elevated PSA: Continues to follow urology in [place], most recent PSA at 10. He reports they are not recommending biopsy at this time as he has had a chronically elevated PSA likely secondary to bph. He otherwise denies any ur inary difficulties. .. Hyperlipidemia:? Patient's most recent lipid panel showing elevated total cholesterol and LDL. He admits to not taking his statin therapy and recently restarted taking the medication. PLAN: Will recheck lipid panel in 6 months while continuing with the taking statin therapy. Laboratory Tests 08/21/23 02/16/24 12/31/24 08:50 08:45 09:12 Hgb 13.3 L Sodium 146 H Fasting Glucose 85 Triglycerides 74 235 H Cholesterol 188 246 H LDL Cholesterol, C alc 128 H PSA Screen 9.74 H 6.23 H 10.68 H PFSH Medical History High cholesterol Vertigo Surgical History No history of previous surgery Social History [facility]: [facility] Alcohol intake: current Alcohol intake frequency: holidays/special occasions only Alcohol type: beer Patient Tobacco Use Status: Never used Tobacco e-Cigarette/Vaping Use: Never Used Second Hand Smoke Exposure: No service: Yes ([employer]) Current occupational status: retired Current occupation: rt hand Cognitive needs: No Hearing needs: Yes (hearing aide) Vision needs: Yes (glasses) Questionnaire PHQ-9 Over the last 2 weeks, how often have you been bothered by any of the following problems? 1. Little interest or pleasure in doing things: not at all 2. Feeling down, depressed, or hopeless: not at all 3. Trouble falling or staying asleep, or sleeping too much: not at all 4. Feeling tired or having little energy: not at all 5. Poor appetite or overeating: not at all 6. Feeling bad about yourself - or that you are a failure or have let yourself or your family down: not at all 7. Trouble concentrating on things, such as reading the newspaper or watching television: not at all 8. Moving or speaking so slowly that other people could have noticed. Or the opposite - being so fidgety or restless that you have been moving around a lot more than usual: not at all 9. Thoughts that you would be better off or of hurting yourself in some way: not at all Total score: 0 Depression Screening Interpretation: Negative Depression Screening Done: Yes 00766 - PHQ-9 Billing: Yes Source: Developed by Drs. Juan Jarquin, Marlene Richard, Hang Ugalde and colleagues, with an educational cheryl from [employer]. Thrive Questionnaire Date Thrive assessed: 02/11/25 NETTA-7 AMB Questionnaire NETTA-7 Date NETTA - 7 assessed: 08/14/24 Feeling nervous, anxious, or on edge: 0 = Not at all Not being able to stop or control worryin = Not at all Worrying too much about different things: 0 = Not at all Trouble relaxin = Not at all Being so restless that it is hard to sit still: 0 = Not at all Becoming easily annoyed or irritable: 0 = Not at all Feeling afraid as if something awful might happen: 0 = Not at all Total NETTA-7 score (0-4 normal; 5-9 mild; 10-14 moderate; 15-21 severe): 0 Source: Developed by Drs. Juan Jarquin, Marlene Richard, Hang Ugalde and colleagues, with an educational cheryl from [employer]. NETTA-7 Assessment Billing NETTA-7 Assessment Tool: NETTA-7 Assessment 05980 Review of Systems Const Denies headache(s) Eyes Denies loss of vision ENT Denies vertigo, Denies dizziness, Denies headache(s) and Denies sore throat Card Denies chest pain, Denies leg edema and Denies lightheadedness Resp Denies cough, Denies hemoptysis and Denies wheezing GI Denies abdominal pain, Denies melena, Denies constipation, Denies diarrhea and Denies vomiting Denies dysuria, Denies urinary frequency and Denies urinary urgency Musc Denies arthralgias, Denies joint swelling, Denies numbness and Denies tingling Neuro Denies Abnormal speech present, Denies behavioral changes, Denies vertigo, Denies dizziness, Denies headache(s), Denies loss of vision, Denies memory loss, Denies numbness and Denies tingling Psych Denies anxiety, Denies behavioral changes, Denies depression, Denies memory loss and Denies panic attacks Shantanu/Lymph Denies easy bleeding and Denies easy bruising Aller/Immun Denies wheezing Physical exam (Primary Care) Vital Signs: Last Vital Signs Temp 97.5 F 02/11/25 10:18 Pulse 64 02/11/25 10:18 BP 142/62 H 02/11/25 10:18 Pulse Ox 98 02/11/25 10:18 Oxygen Delivery Method Room Air 02/11/25 10:18 BMI result Body Mass Index 24.8 Tobacco/Smoking Status: Tobacco use Status Tobacco use date assessed 02/11/25 02/11/25 10:20 Patient Tobacco Use Status Never used Tobacco 02/11/25 10:07 e-Cigarette/Vaping Use Never Used 02/11/25 10:07 PHQ-9: PHQ-9 Score PHQ-9: Total score 0 02/11/25 10:35 Depression Screening Interpretation: Negative Thrive Assessment: Date of Thrive Assessment Date Thrive assessed 02/11/25 02/11/25 10:07 Const General: healthy appearing, no acute distress, alert and awake Nutritional Appearance: well nourished Orientation/consciousness: oriented to person, oriented to place and oriented to time HENMT Ears: TM's normal bilaterally General nose exam: Normal nasal mucous membranes and turbinates present Eyes Conjunctivae: conjunctivae normal Sclerae: sclerae normal Pupils: Equal, round and reactive pupils present Neck Neck: Yes no lymphadenopathy and Yes no JVD Thyroid: Thyroid normal Carotids: no bruits Resp Effort & Inspection: normal respiratory effort and not tachypneic Auscultation: no crackles, no rales, no rhonchi and no wheezes Cardio Rate: regular rate Rhythm: regular rhythm Heart sounds: no murmurs and normal S1 and S2 GI Palpation (GI): Soft to palpation, nontender, no hepatomegaly and no splenomegaly Auscultation: normal bowel sounds Skin General skin exam: no rashes or lesions noted and dry skin Neuro General: oriented to person, oriented to place and oriented to time Cranial nerves: Yes Equal, round and reactive pupils present Speech: No Abnormal speech present Gait exam (Neuro): Normal gait present Motor exam (neuro): no tremor noted Extrem Right upper extremity: full ROM Left upper extremity: full ROM Right lower extremity: full ROM; no edema Left lower extremity: full ROM; no edema Psych Mental Status: mental status grossly normal Speech and movement: Normal speech and movement present Affect: normal affect Attitude: cooperative Thought process: Normal thought process present Coding Level of Care Code Est Pt Level 4 (05450) Diagnoses Mixed hyperlipidemia E78.2 Hyperlipidemia type: mixed hyperlipidemia Benign prostatic hyperplasia without lower urinary tract symptoms N40.0 Lower urinary tract symptom presence: symptoms absent Elevated blood pressure reading R03.0 Primary hypertension I10 Hypertension type: primary hypertension Additional Codes PHQ-9 - 13739 - PHQ-9 Billing: Yes ([id number]) NETTA-7 Assessment Billing - NETTA-7 Assessment Tool: NETTA-7 Assessment 52261 ([id number]) Assessment & Plan Assessment & Plan (1) HLD (hyperlipidemia): Code(s): E78.5 - Hyperlipidemia, unspecified Category: Medical Qualifiers: Hyperlipidemia type: mixed hyperlipidemia Qualified Code(s): E78.2 - Mixed hyperlipidemia Plan: Patient's recent lipid panel showing elevated total cholesterol and LDL. He admits he was not taking statin therapy. He has restarted taking simvastatin. Will recheck fasting lipid panel in 6 months to assure normal. Goal LDL to be below 130 (2) BPH (benign prostatic hyperplasia): Code(s): N40.0 - Benign prostatic hyperplasia without lower urinary tract symptoms Category: Medical Qualifiers: Lower urinary tract symptom presence: symptoms absent Qualified Code(s): N40.0 - Benign prostatic hyperplasia without lower urinary tract symptoms Plan: Continues to follow urology, denies any particular urinary symptoms. Most recent PSAs has been elevated though has been a chronic finding. (3) Elevated blood pressure reading: Code(s): R03.0 - Elevated blood-pressure reading, without diagnosis of hypertension Category: Medical Plan: Noted elevated blood pressure reading today and at previous office visits. Will start hydrochlorothiazide to help control blood pressure. Goal blood pressure is to be below 140/90 (4) HTN (hypertension): Code(s): I10 - Essential (primary) hypertension Category: Medical Qualifiers: Hypertension type: primary hypertension Qualified Code(s): I10 - Essential (primary) hypertension Plan: As above Orders: Orders TSH reflex Free T4 02/11/25 E03.9 - Hypothyroidism, unspecified Lipid Panel 02/11/25 E78.2 - Mixed hyperlipidemia Complete Blood Count no Diff 02/11/25 E78.2 - Mixed hyperlipidemia Comprehensive [place]. Panel Fast 02/11/25 E78.2 - Mixed hyperlipidemia Medications: New hydrochlorothiazide 12.5 mg PO DAILY 90 tabs 1RF 90 days I10 - Essential (primary) hypertension Patient Instructions: Goal: LDL to be below 130, blood pressure to be below 140/90 Barrier: Adherence to physical activity and healthy eating habits
[2025-02-11 10:18] VITALS: BP 142/62; PULSE 64; TEMP 36.4; O2SAT 98; BMI 24.8
== END 2025-02-11 10:46 | disposition home or self-care (01) ==
LOC: HO.HMCH 10:02
PROVIDERS: PCP Physician Assistant; Visit Provider Physician Assistant
DX: E78.2 Mixed hyperlipidemia (principal); N40.0 Benign prostatic hyperplasia without lower urinary tract symptoms; R03.0 Elevated blood-pressure reading, without diagnosis of hypertension; I10 Essential (primary) hypertension

== ENCOUNTER → 2025-02-11 10:02 | Outpatient (BNVA) | payer MEDICARE, SELFPAY | PROVIDERS: PCP Physician Assistant; Visit Provider Physician Assistant | DX: E78.2 Mixed hyperlipidemia (principal); N40.0 Benign prostatic hyperplasia without lower urinary tract symptoms; R03.0 Elevated blood-pressure reading, without diagnosis of hypertension; I10 Essential (primary) hypertension | CPT/HCPCS: 96127; 99212 ==

== ENCOUNTER 2025-08-14 08:38 | Outpatient (AMB) | payer MEDICARE, SELFPAY ==
[2025-08-14 08:42] VITALS: BP 124/58; PULSE 74; O2SAT 97; BMI 24.1
--- NOTE | 2025-08-14 08:42 | A.OFFPC_ITS ---
Vital Signs 08/14/25 08:42 Height 5 ft 7 in Weight 154 lb 2 oz BMI 24.1 BP 124/58 L Blood Pressure Location Lt brachial Position Sitting Pulse 74 Pulse Source Pulse Oximeter Pulse Oximetry (%) 97 Oxygen Delivery Method Room Air Intake Visit Reasons: f/u HTN / HLD Neonatal Critical Care Nurse Required: No Accompanied by: Self / Same As Patient Allergies No Known Allergies Allergy (Verified 08/14/25 08:59) Medication List - Last Reconciled 08/14/25 by SHWETA Patterson-Hien hydrochlorothiazide 12.5 mg PO DAILY 90 days levothyroxine 50 mcg PO DAILY 90 days meclizine 25 mg PO DAILY 90 days neomycin-polymyxin B-dexameth 3.5 mg/g-10,000 unit/g-0.1 % ophthalmic (eye) sildenafil 100 mg PO DAILY PRN simvastatin 40 mg PO BEDTIME 90 days tamsulosin 0.4 mg PO DAILY Tobacco use date assessed: 02/11/25 Fall risk assessment: No Falls in past year Last assessed Fall Risk: 08/14/25 Dental Screening Dental Screen Date: 08/14/25 Did you have a dental visit in the last 12 months?: Yes Did you have a dental problem in the last 6 months where you did not have access to dental care?: No Was dental information given to patient?: No HPI f/u HTN / HLD HPI Details Patient is a 80-year-old here today for a follow-up visit? Patient has a past medical history significant for hyperlipidemia, BPH, chronic vertigo, hypothyroidism. 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 Hypothyroidism:? Patient continues on levothyroxine 50mcg. TSH has been fairly stable .. Elevated PSA: Continues to follow urology in [place], most recent PSA at 10. He reports they are not recommending biopsy at this time as he has had a chronically elevated PSA likely secondary to bph. He otherwise denies any urinary difficulties. .. Hyperlipidemia:? Patient's most recent lipid panel showing elevated total cholesterol and LDL. He admits to not taking his statin therapy and recently restarted taking the medication. PLAN: Will recheck lipid panel in 6 months while continuing with the taking statin therapy. ] Laboratory Tests 12/31/24 09:12 Total PSA (off-sit e) 10.8 H TSH 4.06 H PFSH Medical History High cholesterol Vertigo Surgical History No history of previous surgery Social History [facility] Alcohol intake: current Alcohol intake frequency: holidays/special occasions only Alcohol type: beer Patient Tobacco Use Status: Never used Tobacco e-Cigarette/Vaping Use: Never Used Second Hand Smoke Exposure: No service: Yes ([employer]) Current occupational status: retired Current occupation: rt hand Cognitive needs: No Hearing needs: Yes (hearing aide) Vision needs: Yes (glasses) Questionnaire Thrive Questionnaire Date Thrive assessed: 02/11/25 NETTA-7 AMB Questionnaire NETTA-7 Date NETTA - 7 assessed: 08/14/24 Source: Developed by Drs. Juan Jarquin, Marlene Richard, Hang Ugalde and colleagues, with an educational cheryl from [employer]. Review of Systems Const Denies headache(s) Eyes Denies loss of vision ENT Denies vertigo, Denies dizziness, Denies headache(s) and Denies sore throat Card Denies chest pain, Denies leg edema and Denies lightheadedness Resp Denies cough, Denies hemoptysis and Denies wheezing GI Denies abdominal pain, Denies melena, Denies constipation, Denies diarrhea and Denies vomiting Denies dysuria, Denies urinary frequency and Denies urinary urgency Musc Denies arthralgias, Denies joint swelling, Denies numbness and Denies tingling Neuro Denies Abnormal speech present, Denies behavioral changes, Denies vertigo, Denies dizziness, Denies headache(s), Denies loss of vision, Denies memory loss, Denies numbness and Denies tingling Psych Denies anxiety, Denies behavioral changes, Denies depression, Denies memory loss and Denies panic attacks Shantanu/Lymph Denies easy bleeding and Denies easy bruising Aller/Immun Denies wheezing Physical exam (Primary Care) Vital Signs: Last Vital Signs Pulse 74 08/14/25 08:42 BP 124/58 L 08/14/25 08:42 Pulse Ox 97 08/14/25 08:42 Oxygen Delivery Method Room Air 08/14/25 08:42 BMI result Body Mass Index 24.1 Tobacco/Smoking Status: Tobacco use Status Tobacco use date assessed 02/11/25 08/14/25 08:47 Patient Tobacco Use Status Never used Tobacco 08/14/25 08:47 e-Cigarette/Vaping Use Never Used 08/14/25 08:47 Thrive Assessment: Date of Thrive Assessment Date Thrive assessed 02/11/25 08/14/25 08:47 Const General: healthy appearing, no acute distress, alert and awake Nutritional Appearance: well nourished Orientation/consciousness: oriented to person, oriented to place and oriented to time HENMT Ears: TM's normal bilaterally General nose exam: Normal nasal mucous membranes and turbinates present Eyes Conjunctivae: conjunctivae normal Sclerae: sclerae normal Pupils: Equal, round and reactive pupils present Neck Neck: Yes no lymphadenopathy and Yes no JVD Thyroid: Thyroid normal Carotids: no bruits Resp Effort & Inspection: normal respiratory effort and not tachypneic Auscultation: no crackles, no rales, no rhonchi and no wheezes Cardio Rate: regular rate Rhythm: regular rhythm Heart sounds: no murmurs and normal S1 and S2 GI Palpation (GI): Soft to palpation, nontender, no hepatomegaly and no splenomegaly Auscultation: normal bowel sounds Skin General skin exam: no rashes or lesions noted and dry skin Neuro General: oriented to person, oriented to place and oriented to time Cranial nerves: Yes Equal, round and reactive pupils present Speech: No Abnormal speech present Gait exam (Neuro): Normal gait present Motor exam (neuro): no tremor noted Extrem Right upper extremity: full ROM Left upper extremity: full ROM Right lower extremity: full ROM; no edema Left lower extremity: full ROM; no edema Psych Mental Status: mental status grossly normal Speech and movement: Normal speech and movement present Affect: normal affect Attitude: cooperative Thought process: Normal thought process present Coding Level of Care Code Est Pt Level 4 (07380) Diagnoses Mixed hyperlipidemia E78.2 Hyperlipidemia type: mixed hyperlipidemia Benign prostatic hyperplasia without lower urinary tract symptoms N40.0 Lower urinary tract symptom presence: symptoms absent Primary hypertension I10 Hypertension type: primary hypertension Assessment & Plan Assessment & Plan (1) HLD (hyperlipidemia): Code(s): E78.5 - Hyperlipidemia, unspecified Category: Medical Qualifiers: Hyperlipidemia type: mixed hyperlipidemia Qualified Code(s): E78.2 - Mixed hyperlipidemia Plan: Patient continues on simvastatin 40, advised to get fasting labs done to evaluate total cholesterol and LDL.. Goal LDL to be below 130 (2) BPH (benign prostatic hyperplasia): Code(s): N40.0 - Benign prostatic hyperplasia without lower urinary tract symptoms Category: Medical Qualifiers: Lower urinary tract symptom presence: symptoms absent Qualified Code(s): N40.0 - Benign prostatic hyperplasia without lower urinary tract symptoms Plan: Continues to follow urology, denies any particular urinary symptoms. Most recent PSAs has been elevated though has been a chronic finding. (3) HTN (hypertension): Code(s): I10 - Essential (primary) hypertension Category: Medical Qualifiers: Hypertension type: primary hypertension Qualified Code(s): I10 - Essential (primary) hypertension Plan: As above Patient's blood pressure acceptable today in office. Will continue on hydrochlorothiazide 12.5 mg. Goal blood pressure to remain below 140/90 Orders: Orders Prostate Specific Antigen Scr 08/14/25 N40.0 - Benign prostatic hyperplasia without lower urinary tract symptoms, Z12.5 - Encounter for screening for malignant neoplasm of prostate Medications: Refilled sildenafil 100 mg PO DAILY PRN 30 tabs 3RF sexual activity F52.21 - Male erectile disorder Patient Instructions: Goal: Blood pressure to be below 140/90, LDL to remain below 130 Barriers: Adherence to physical activity and healthy eating habits
--- OUTSIDE RECORDS SUMMARY | 2025-08-14 09:51 | XMS_ITS | Patient Health Record ---
Author Organization [facility] Address [address] [place] [id number] Care Team Providers Care Ice Carver Name Role Phone Nadia(inactive) Luis Alfredo QUINTANILLA Primary Care Provider U Juan Gonzalez Unavailable [phone] Reason For Referral No Information Medications Medication SIG (Take, Route, Fr equency, Duration) Notes Start Date End Date Status Aspirin 81 MG Orally Active Multivitamin Active Meclizine HCl 25 MG 1 tablet as needed O rally Once a day Active Simvastatin 20 MG 1 tablet in the even ing Orally Once a day Active Social History Tobacco Use: Social History Observation Description Date Details (start date - stop date) Never Smoker NA - NA Tobacco Use/Smoking Question Answer Notes Patient is a nonsmoker Alcohol Screen Question Answer Notes Did you have a drink contain ing alcohol in the past year? Yes How often did you have a dri nk containing alcohol in the past year? 2 to 4 times a month (2 points) How many drinks did you have on a typical day when you were drinking in the past year? 1 or 2 drinks (0 point) Points 2 Interpretation Negative Section Notes: Nonsmoker; occ. beer Problems Problem Type SNOMED Code ICD Code Onset Dates Problem Status W/U Status Risk Notes Problem 397332293 Encounter for screening for malignant neoplasm of colon (Z12.11) Active confirmed Problem 189479200 Preprocedural examination (Z01.818) Active confirmed Problem 607007515 Aspirin long-ter m use (Z79.82) Active confirmed Plan Of Treatment Pending Test Test Name Order Date GI BIOPSY 08/13/2018 Future Test Test Name Order Date COLONOSCOPY 03/06/2018 Insurance Providers Payer Name Payer Address Payer Phone Subscriber Number Group Number Insured Name Patient Relationship to Insured Coverage Start Date Coverage End Date [facility] [address] [address] [place] [address] [phone] [id number] VIRAJ GARZON Self - patient is the insured Medical (General) History Medical History History ICD Code Denies [place],DM,CVA,Lung disease,renal dise ase Hx of vertigo Hyperlipidemia Neg. 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
--- OUTSIDE RECORDS SUMMARY | 2025-08-14 09:51 | XMS_ITS | Encounter Summary ---
Author Organization [facility] Address [address] [place] [phone] Phone Care Team Providers Care Hand Candy Dipper Name Role Phone Zaid Connell Primary Care Provider + Reason for Referral * Physical Therapy (Routine) - Closed Specialty Diagnoses / Procedures Referred By Jose drake Referred To Contact Physical Therapy Diagnoses Encounter for rehabilitation Zaid Connell PA Phone: tel: fax: [facility] [address] [place] [address] Phone: tel: Referral ID Status Reason Start Date Expiration Date Visits Re quested Visits Authorized [id number] Closed 03/25/2022 03/25/2023 1 1 Encounter Details Date Type Department Care Team (Latest Contact Info) Description 03/25/2022 Transcribe Orders [facility] [address] [place] [address] Zaid Connell PA [facility] [place] [address] Encounter for rehabilitation (Primary Dx) Social History Tobacco Use Types Packs/Day Years Used Date Smoking Tobacco: Never Assessed Sex and Gender Information Value Date Recorded Sex Assigned at Not on file Legal Sex Male 10:10 PM EDT Gender Identity Not on file Sexual Orientation Not on file documented as of this encounter Plan of Treatment Scheduled Referrals Name Type Priority Associated Diagnoses Orde r Schedule Ambulatory referral to [facility] Physical Therapy Outpatient Referral Routine Encounter for rehabilitation Ordered: 03/25/2022 documented as of this encounter Visit Diagnoses Diagnosis Encounter for rehabilitation- Primary documented in this encounter Care Teams Hand Candy Dipper Relationship Specialty Start Date End Date Zaid Connell PA [address] [place] [address] PCP - General 03/18/22 documented as of this encounter Additional Source Comments The information contained in this document represents components of the legal health record. It is not the complete legal health record.[facility]
--- OUTSIDE RECORDS SUMMARY | 2025-08-14 09:51 | XMS_ITS | Clinical Summary ---
Author Organization [facility] Address [address] [facility] [address] [place] [address] Phone Care Team Providers Care Supervisor Farm Equipment Maintenance Name Role Phone Zaid Connell Primary Care Provider + Allergies No known active allergies Medications SYNTHROID 50 mcg tablet 02/12/2024 Active meclizine (ANTIVERT) 25 mg tablet 03/11/2024 Active neomycin-polymy thierno B-dexAMETHasone (MAXITROL) 3.5 mg/g-10,000 unit/g-0.1 % Oint APPLY TO BOTH EYES EVERY NIGHT AT BEDTIME 01/18/2024 Active sildenafiL (VIAGRA) 100 mg tablet 01/31/2024 Active tamsulosin (FLOMAX) 0.4 mg Cap Take 1 capsule by mouth every morning. 02/07/2024 Active Active Problems No known active problems Social History Tobacco Use Types Packs/Day Years Used Date Smoking Tobacco: Never Smokeless Tobacco: Never Tobacco Cessation:Counseling Given: Not Answered Education Answer Date Recorded Are you interested in more education? Not on dereck e 03/24/2023 Are you concerned about learning? Not on file 03/24/2023 No 03/24/2023 No 03/24/2023 Digital Access Answer Date Recorded No 04/22/2023 No 04/22/2023 Reliable internet access at home? Not on file 04/22/2023 Device with a working camera? Not on file Sex and Gender Information Value Date Recorded Sex Assigned at Not on file Legal Sex Male 10:10 PM EDT Gender Identity Not on file Sexual Orientation Not on file Last Filed Vital Signs Vital Sign Reading Time Taken Comments Blood Pressure 127/81 11/26/2024 1:36 PM EST Pulse 74 11/26/2024 1:36 PM EST Temperature 36.6 C (97.9 F) 11/26/2024 1:36 PM EST Respiratory Rate 16 11/26/2024 1:36 PM EST Oxygen Saturation 98% 11/26/2024 1:36 PM EST Inhaled Oxygen Concentration - - Weight 72.6 kg (160 lb) 04/05/2024 11:35 AM EDT per pt Height - - Body Mass Index - - Plan of Treatment Health Maintenance Due Date Last Done Comments TSH LEVEL 1943 DEPRESSION SCREENING 1955 PNEUMOCOCCAL VACCINES (50+ years) (1 of 1 - PCV) 1993 RSV VACCINE (1 - 1-dose 75+ series) 2018 ZOSTER VACCINES (3 of 3) 04/16/2018 02/19/2018, 10/27 INFLUENZA VACCINE (#1) 2025 2, 10/08/2021, 09/28/2020, Additional history exists COVID-19 VACCINE ( season) 2025 Adult Td,Tdap Booster 12/09/2029 12/09/2019 HEPATITIS A VACCINES Aged Out No long er eligible based on patient's age to complete this topic HIB VACCINES Aged Out No longer eligi ble based on patient's age to complete this topic MENINGOCOCCAL VACCINES (ACWY) Aged Out No longer eligible based on patient's age to complete this topic MENINGOCOCCAL VACCINES (B) Aged Out N o longer eligible based on patient's age to complete this topic Medical Devices Not on file Insurance [facility] MEDICARE REPLACEMENT [facility] MEDICARE REPLACEMENT [facility] MEDICARE REPLACEMENT [facility] MEDICARE REPLACEMENT [facility] MEDICARE REPLAC[place] [address] [address] [place] [address] MEDICARE REPLACEMENT [facility] MEDICARE REPLACEMENT [facility] MEDICARE REPLACEMENT [place] [id number] [facility] MEDICARE REPLACEMENT Care Teams Supervisor Farm Equipment Maintenance Relationship Specialty Start Date End Date Zaid Connell PA [address] [place] [id number] PCP - General 03/18/22 Additional Source Comments The information contained in this document represents components of the legal health record. It is not the complete legal health record.[facility]
== END 2025-08-14 09:16 | disposition home or self-care (01) ==
LOC: HO.HMCH 08:39
PROVIDERS: PCP Physician Assistant; Visit Provider Physician Assistant
DX: E78.2 Mixed hyperlipidemia (principal); N40.0 Benign prostatic hyperplasia without lower urinary tract symptoms; I10 Essential (primary) hypertension

== ENCOUNTER → 2025-08-14 08:38 | Outpatient (BNVA) | payer MEDICARE, SELFPAY | PROVIDERS: PCP Physician Assistant; Visit Provider Physician Assistant | DX: E78.2 Mixed hyperlipidemia (principal); N40.0 Benign prostatic hyperplasia without lower urinary tract symptoms; I10 Essential (primary) hypertension | CPT/HCPCS: 99212 ==

== ENCOUNTER 2025-09-04 09:11 | Outpatient (REF) | payer MEDICARE, SELFPAY | END 2025-09-04 09:12 | disposition home or self-care (01) | LOC: HO.10HDL 09:11 | PROVIDERS: Visit Provider Physician Assistant | DX: Z12.5 Encounter for screening for malignant neoplasm of prostate (principal); N40.0 Benign prostatic hyperplasia without lower urinary tract symptoms | CPT/HCPCS: 36415; 84153 ==

== ENCOUNTER 2025-10-09 10:35 | Outpatient (REF) | payer MEDICARE, SELFPAY ==
[2025-10-09 11:35] LABS: Hematocrit 42.6 % (42.0-52.0); Hemoglobin 14.3 g/dl (14.0-18.0); Mean Corpuscular HGB Conc 33.6 g/dl (31.0-36.0); Mean Corpuscular Hemoglobin 31.7 pg (27.0-33.0); Mean Corpuscular Volume 94.5 fL (80.0-98.0); NRBC Abs Auto 0.000 X10*3/uL (0.0-0.012); NRBC Pct Auto 0.0 /100WBC (0.0-0.2); Platelet Count 248 X10*3/uL (160-400); Red Blood Count 4.51 X10*6/uL (4.60-5.80); White Blood Count 5.2 X10*3/uL (4.8-10.8)
[2025-10-09 12:19] LABS: Alanine Aminotransferase 21 U/L (0-40); Albumin Level 4.1 g/dL (3.5-5.0); Alkaline Phosphatase 71 U/L (39-117); Anion Gap 12 (12-20); Aspartate Amino Transferase 24 U/L (5-37); Blood Urea Nitrogen 20 mg/dL (9-16); Calcium 9.5 mg/dL (8.4-10.2); Carbon Dioxide 29 mmol/L (22-29); Chloride 106 mmol/L (96-108); Cholesterol 192 mg/dL (<200); Estimated Glomerular Filt Rate > 60; HDL Cholesterol 83 mg/dL (>40); Potassium 4.0 mmol/L (3.3-5.1); Sodium 143 mmol/L (135-145); Total Protein 7.1 g/dL (6.5-8.0); Triglycerides 70 mg/dL (<150)
--- OUTSIDE RECORDS SUMMARY | 2025-10-09 13:02 | XMS_ITS | Encounter Summary ---
Author Organization [facility] Address [address] [place] [phone] Phone Care Team Providers Care Senior Risk Manager Name Role Phone Zaid Connell Primary Care Provider + Reason for Referral * Physical Therapy (Routine) - Closed Specialty Diagnoses / Procedures Referred By Jose drake Referred To Contact Physical Therapy Diagnoses Encounter for rehabilitation Zaid Connell PA Phone: tel: fax: [facility] [address] [place] [address] Phone: tel: Referral ID Status Reason Start Date Expiration Date Visits Re quested Visits Authorized [id number] Closed 03/25/2022 03/25/2023 1 1 Encounter Details Date Type Department Care Team (Latest Contact Info) Description 03/25/2022 Transcribe Orders [facility] [address] [place] [address] Zaid Connell PA [facility] [place] [address] Encounter for rehabilitation (Primary Dx) Social History [...] Diagnoses Orde r Schedule Ambulatory referral to [facility] Physical Therapy Outpatient Referral Routine Encounter for rehabilitation Ordered: 03/25/2022 documented as of this encounter Visit Diagnoses Diagnosis Encounter for rehabilitation- Primary documented in this encounter Care Teams Senior Risk Manager Relationship Specialty Start Date End Date Zaid Connell PA [address] [place] [address] PCP - General 03/18/22 documented as of this encounter Additional Source Comments The information contained in this document represents components of the legal health record. It is not the complete legal health record.[facility]
--- OUTSIDE RECORDS SUMMARY | 2025-10-09 13:02 | XMS_ITS | Patient Health Record ---
Author Organization [facility] Address [address] [place] [id number] Care Team Providers Care Telephone Ad Taker Name Role Phone Nadia(inactive) Luis Alfredo QUINTANILLA Primary Care Provider U Juan Gonzalez Unavailable [phone] Reason For Referral No Information Medications Medication [...] Problem Status W/U Status Risk Notes Problem Screening for malignant neoplasm of colon (128129656) Encounter for screening for malignant neoplasm of colon (Z12.11) Active confirmed Problem Preprocedural examination (872618399351427) Preprocedural examination (Z01.818) Active confirmed Problem Long-term current use of aspirin (258312413013828) Aspirin long-term use (Z79.82) Active confirmed Plan Of Treatment Pending Test Test Name Order Date GI BIOPSY 08/13/2018 Future Test Test Name Order Date COLONOSCOPY 03/06/2018 Insurance Providers Payer Name Payer Address Payer Phone Subscriber Number Group Number Insured Name Patient Relationship to Insured Coverage Start Date Coverage End Date [facility] [address] [address] [place] [address] [id number] VIRAJ GARZON Self - patient is the insured Medical (General) History Medical History History ICD Code Denies [place],DM,CVA,Lung disease,renal dise ase Hx of vertigo Hyperlipidemia Neg. 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
--- OUTSIDE RECORDS SUMMARY | 2025-10-09 13:02 | XMS_ITS | Clinical Summary ---
Author Organization [facility] Address [address] [facility] [address] [place] [phone] Phone Care Team Providers Care Medical Sonographer Name Role Phone Zaid Connell Primary Care [...] 10/08/2021, 09/28/2020, Additional history exists COVID-19 VACCINE (2024- season) 2025 Adult Td,Tdap Booster 12/09/2029 12/09/2019 HEPATITIS A VACCINES Aged Out No long er eligible based on patient's age to complete this topic HIB VACCINES Aged Out No longer eligi ble based on patient's age to complete this topic IPV VACCINES Aged Out No longer eligi ble based on patient's age to complete this topic MENINGOCOCCAL VACCINES (ACWY) Aged Out No longer eligible based on patient's age to complete this topic MENINGOCOCCAL VACCINES (B) Aged Out N o longer eligible based on patient's age to complete this topic Medical Devices Not on file Insurance [facility] MEDICARE [place] [address] [place] [address] MEDICARE REPLACEMENT [facility] MEDICARE REPLACEMENT [facility] MEDICARE REPLACEMENT [facility] MEDICARE REPLACEMENT [facility] MEDICARE REPLACEMENT [facility] MEDICARE [facility]PLACEMENT [facility] MEDICARE REPLACEMENT [place] [id number] [facility] MEDICARE REPLACEMENT [place] [id number] Care Teams Medical Sonographer Relationship Specialty Start Date End Date Zaid Connell PA [facility] [place] [address] PCP - General 03/18/22 Additional Source Comments The information contained in this document represents components of the legal health record. It is not the complete legal health record.[facility]
== END 2025-10-09 10:36 | disposition home or self-care (01) ==
LOC: HO.LAB 10:35
PROVIDERS: PCP Physician Assistant; Visit Provider Physician Assistant
DX: Z01.818 Encounter for other preprocedural examination (principal); E78.2 Mixed hyperlipidemia; E03.9 Hypothyroidism, unspecified; H26.9 Unspecified cataract
CPT/HCPCS: 36415; 80053; 80061; 84443; 85027; 96127

== ENCOUNTER 2025-10-09 10:49 | Outpatient (AMB) | payer MEDICARE, SELFPAY ==
--- NOTE | 2025-10-09 11:36 | MHC.PC.OV ---
Vital Signs 10/09/25 11:38 Height 5 ft 7 in Weight 156 lb BMI 24.4 BP 120/64 Blood Pressure Location Lt brachial Position Sitting Pulse 72 Pulse Source Pulse Oximeter Temp 97.5 F Temp Source Temporal Artery Scan Pulse Oximetry (%) 98 Oxygen Delivery Method Room Air Intake Visit Reasons: cataract surgery 10/28 lt Intake Note: Patient is here for a Pre-op for Left eye cataract surgery scheduled with Dr Camp on 10/28/25. Shipfitter Helper Required: No Windows Security Analyst: Not Required per policy Accompanied by: Self / Same As Patient Allergies No Known Allergies Allergy (Verified 10/09/25 11:37) Medication List - Last Reconciled 10/09/25 by Ariadne Crenshaw MD finasteride 5 mg PO DAILY 90 days hydrochlorothiazide 12.5 mg PO DAILY 90 days levothyroxine 50 mcg PO DAILY 90 days meclizine 25 mg PO DAILY 90 days neomycin-polymyxin B-dexameth 3.5 mg/g-10,000 unit/g-0.1 % ophthalmic (eye) sildenafil 100 mg PO DAILY PRN simvastatin 40 mg PO BEDTIME 90 days tamsulosin 0.4 mg PO DAILY Tobacco use date assessed: 10/09/25 Fall risk assessment: No Falls in past year Last assessed Fall Risk: 10/09/25 Dental Screening Dental Screen Date: 08/14/25 HPI HPI Comments History of Present Illness Details The patient is an 80-year-old male presenting for a pre-operative evaluation for left eye cataract surgery scheduled for October 28. He denies any history of heart problems, heart attacks, heart failure, chest pain, or shortness of breath on exertion. He also denies any kidney or breathing problems. . The patient is not on any blood thinners. The patient is very active, going to the gym 3-4 times a week, playing golf, and taking walks. He does not smoke cigarettes but has an occasional cigar. [facility] Medical History High cholesterol Vertigo Surgical History No history of previous surgery Social History Housing: Condominium Alcohol intake: current Alcohol intake frequency: holidays/special occasions only Alcohol type: beer Patient Tobacco Use Status: Never used Tobacco e-Cigarette/Vaping Use: Never Used Second Hand Smoke Exposure: No service: Yes ([employer]) Current occupational status: retired Current occupation: rt hand Cognitive needs: No Hearing needs: Yes (hearing aide) Vision needs: Yes (glasses) Questionnaire Thrive Questionnaire Date Thrive assessed: 02/11/25 AUDIT C Alcohol Use Questionnaire (AUDIT-C) 1. How often do you have a drink containing alcohol?: 2-4 times a month 2. How many drinks containing alcohol do you have on a typical day when you are drinking?: 1 or 2 Total Score: 2 NETTA-7 AMB Questionnaire NETTA-7 Date NETTA - 7 assessed: 10/09/25 Feeling nervous, anxious, or on edge: 0 = Not at all Not being able to stop or control worryin = Not at all Worrying too much about different things: 0 = Not at all Trouble relaxin = Not at all Being so restless that it is hard to sit still: 0 = Not at all Becoming easily annoyed or irritable: 0 = Not at all Feeling afraid as if something awful might happen: 0 = Not at all Total NETTA-7 score (0-4 normal; 5-9 mild; 10-14 moderate; 15-21 severe): 0 Source: Developed by Drs. Juan Jarquin, Marlene Richard, Hang Ugalde and colleagues, with an educational cheryl from [employer]. Review of Systems Const Details: As per HPI. Physical exam (Primary Care) Vital Signs: Last Vital Signs Temp 97.5 F 10/09/25 11:38 Pulse 72 10/09/25 11:38 BP 120/64 10/09/25 11:38 Pulse Ox 98 10/09/25 11:38 Oxygen Delivery Method Room Air 10/09/25 11:38 BMI result Body Mass Index 24.4 Tobacco/Smoking Status: Tobacco use Status Tobacco use date assessed 10/09/25 10/09/25 11:44 Patient Tobacco Use Status Never used Tobacco 10/09/25 11:44 e-Cigarette/Vaping Use Never Used 10/09/25 11:44 Thrive Assessment: Date of Thrive Assessment Date Thrive assessed 02/11/25 10/09/25 11:44 Const Other: Pertinent findings are in BOLD GENERAL APPEARANCE NAD, activity normal for age, well developed/ well nourished, no cyanosis, pallor, or diaphoresis. EYES lids/conjunctiva normal. EARS/NOSE/THROAT Mucous membranes moist, nares normal, lips/teeth normal uvula midline without oral pharyngeal erythema, exudate or swelling TMs normal bilaterally. No lymphangitis/lymphedema. HEAD/NECK normocephalic atraumatic, no facial trauma, neck is supple. RESPIRATORY respiratory effort normal, speaks in full sentences, no tripod position, no accessory muscle use. Lungs clear to auscultation without rhonchi, wheezes, rales CARDIAC Regular rate and rhythm, no edema. ABDOMINAL Soft, ND/NT. No evidence of fluid wave. No pulsatile masses on exam, rebound tenderness, Zimmerman sign or pain over Mcburney's point. MUSCLES/EXTREMITIES No abnormal range of motion, no swelling. SKIN Warm, pink and dry. No rashes, dermatoses, petechiae or lesions. NEUROLOGICAL Speech is clear and appropriate. Normal level of consciousness. Gait and coordination are normal. 5/5 strength in all extremities. PSYCH Normal mood and affect. Judgement/competence is appropriate Coding Level of Care Code Est Pt Level 3 (18056) Diagnoses Pre-op exam Z01.818 Time Spent (min) 45 Assessment & Plan Assessment & Plan (1) Pre-op exam: Code(s): Z01.818 - Encounter for other preprocedural examination Category: Medical Plan: - The patient is cleared for his scheduled left eye cataract surgery. - He is advised to continue all current medications, including hydrochlorothiazide and levothyroxine, without interruption for the surgery. - No medication holds are necessary as the patient is not on any blood thinners. Plan I informed the patient that he is cleared to proceed with his left eye cataract surgery scheduled for October 28. I advised him to continue all of his current medications, including hydrochlorothiazide and his thyroid medication, without stopping them for the procedure. We confirmed he is not taking any blood thinners, so no adjustments are necessary. We also discussed his recent lab work, including his PSA level.
[2025-10-09 11:38] VITALS: BP 120/64; PULSE 72; TEMP 36.4; O2SAT 98; BMI 24.4
--- OUTSIDE RECORDS SUMMARY | 2025-10-09 13:22 | XMS_ITS ---
Author Organization Unknown ENCOUNTERS Encounter Performer Location Date Diagnosis Diagnosis Status Pre Admit [address] [id number] [address] [id number] JACK *Note: Encounters from your own facility or health system may be excluded. Allergies, Adverse Reactions, Alerts Allergen Type Severity Identification Date Medications Name Date Quantity Days Supplied GPI Number
== END 2025-10-09 12:34 | disposition home or self-care (01) ==
LOC: HO.HMCH 10:50
PROVIDERS: PCP Physician Assistant; Visit Provider Internal Medicine
DX: Z01.818 Encounter for other preprocedural examination (principal)